=== PATIENT | female | born 1975 | race Caucasian/White ===

== ENCOUNTER 2020-01-09 09:26 | Day surgery (SDC) | payer BC ==
--- NOTE | 2020-01-01 14:55 | RAD REPORT ---
EXAM DESCRIPTION: RAD - Chest Pa And Lat (2 Views) - 01/01/2020 2:50 pm CLINICAL HISTORY: pre op Chest pain. COMPARISON: No comparisons FINDINGS: The lungs are clear. The heart is upper limit of normal in size. No displaced fractures. IMPRESSION: No acute or concerning finding suspected.
[2020-01-01 15:33] LABS: Protime INR 0.92
[2020-01-01 15:35] LABS: Absolute Lymphocytes (CBC) 2.2 K/uL (0.7-4.9); Hematocrit 28.3 % (36.0-45.0); Lymphocytes % 36.5 % (15.3-44.8); MPV 9.4 fL (7.6-11.3); RBC Red Blood Cell Count 4.48 M/uL (3.86-4.86)
[2020-01-01 15:43] LABS: BUN Blood Urea Nitrogen 10 mg/dL (7-18); Bicarbonate 26 mmol/L (21-32); Glucose Level 95 mg/dL (74-106); Potassium 3.9 mmol/L (3.5-5.1); Sodium Level 138 mmol/L (136-145)
[2020-01-01 15:45] LABS: Urine Appearance CLEAR; Urine Bilirubin NEGATIVE (NEG); Urine Blood 1+ (NEG); Urine Color YELLOW; Urine Glucose NEGATIVE (NEG); Urine Protein NEGATIVE (NEG); Urine Specific Gravity <=1.005 (1.005-1.030); Urine Urobilinogen 0.2 mg/dL (0.2-1.0); Urine pH 6.5 (5.0-7.0)
[2020-01-01 15:50] LABS: Urine Microscopic Reflex ORDER UMIC
[2020-01-01 16:03] LABS: Urine Bacteria 20-50 /HPF (<20)
[2020-01-01 16:04] LABS: Urine Culture Reflex Order REFLEXED
[2020-01-01 16:59] LABS: Anisocytosis 2+; Blood Morphology Comment NOTED (NOT SEEN); Platelet Estimate ADEQ; Poikilocytosis 2+; White Blood Cell Scan OK (OK)
[2020-01-09] MEDS ORDERED: Ringers Lactate 1,000 ML IV ONE ×4 (10:27→16:08)
--- OUTSIDE RECORDS SUMMARY | 2020-01-09 10:35 | XMS REPORT | Continuity of Care Document ---
:[address] [facility] t Address [address] [place] [address] Care Team Providers Name Role Phone Malinda PEREZ Primary Care Physician Vi PEREZ, S Attending Clinician Problems This patient has no known problems. Allergies, Adverse Reactions, Alerts This patient has no known allergies or adverse reactions. Family History Family Member Diagnosis Comments Start Date Stop Date Source Natural father Heart disease [facility] Natural father Stroke [facility] Natural mother Diabetes [facility] Natural mother Heart disease [facility] Social History Social Habit Start Date Stop Date Quantity Comments Source History of tobacco Cigarette Smoker [facility] Sex Assigned At [facility] Cigarettes smoked 2017-04-20 2017-04-20 [place] current (pack per 00:00:00 00:00:00 Method) - Reported Tobacco use and 2017-04-20 2017-04-20 Never used [facility] exposure 00:00:00 00:00:00 [facility] Alcohol intake 2017-04-20 2017-04-20 Current drinker [place] on 00:00:00 00:00:00 of alcohol [facility] (finding) Smoking Status Start Date Stop Date Source Current every day smoker 2017-04-20 00:00:00 Roel Ojeda Medications Ordered Filled Start Stop Current Ordering Indication Dosage Frequency Signature Comments Components Source Medication Medication Date Date Medication? Clinician (SIG) Name Name Metoprolol Metoprolol Yes Chelsea [address] [facility] Tartrate Tartrate 918 [facility] Metoprolol Metoprolol Yes Chelsea [address] [facility] Succinate Succinate 8- [place] [facility] - ER ER 00:00: [facility] 00 [facility] Chantix Chantix 2019- Yes Chelsea [address] Continuing Continuing 801-19 [place] [facility] - Month Odin Month Odin 00:00: 00:00 Me moria 00 :00 l [facility] Sumatriptan Sumatriptan 2018-03 Yes Chelsea [address] [facility] Succinate Succinate 0-03 [place] [facility] needed [facility] - 00:[facility]: [facility] 00 [facility] Procedures This patient has no known procedures. Plan of Care Planned Activity Planned Date Details Comments Source Future Scheduled 2019-10-21 INFLUENZA VACCINE [place] [facility] Test 00:00:00 [code = INFLUENZA VACCINE] Future Scheduled 1998 Screening for [facility] Test 00:00:00 malignant neoplasm of cervix (procedure) [code = 160649425] Encounters Start End Encounter Admission Attending Care Care Encounter Source Date/Time Date/Time Type Type Clinicians Facility Department ID 2020-01-02 2020-01-[address] [id number] 2019-12-27 2019-12-28 Emergency [facility], [facility] [id number] 22:00:00 02:01:00 Vinita Ruiz [id number] [place] [id number] [place] [id number] 2019-12-08 2019-12-08 [facility] [id number] [address] 10:00:00 10:00:00 [facility] 2019-11-21 2019-11-21 [facility] [id number] [address] 16:23:00 16:23:00 [facility] [employer] s - Drive [facility] Medicine Outpati ent Clinics 2019 2019 [facility] [id number] 16[facility]00:00 16:00:[facility] Road [facility] Medicine Outpati ent Clinics 2019-10-25 2019-10-25 [facility] [id number] 11:40:00 11:40:[address] [facility] Road [facility] Medicine Outpati ent Clinics 2019-10-11 2019-10-11 [facility] [id number] 08:40:00 08:40:[address] [facility] Road [facility] Medicine Outpati ent Clinics 2019-01-12 2019-01-12 [facility] [id number] 08:40:00 08:40:00 [facility] Medicine Outpati ent Clinics 2019-01-06 2019-01-06 [facility] [id number] 16:07:00 16:07:00 [facility] [employer] [facility] Medicine Outpati ent Clinics 2018-12-22 2018-12-22 [facility] [id number] 15[facility]20:00 15:20:00 [facility] Medicine Outpati ent Clinics Results This patient has no known results.
--- OUTSIDE RECORDS SUMMARY | 2020-01-09 10:35 | XMS REPORT ---
:1975 Author Organization [employer] Care Team Providers Name Role Phone Chelsea Siegel Provider Role Unavailable Allergies, Adverse Reactions, Alerts Substance Reaction Event Type N.K.D.A. Info Not Available Non Drug Allergy Problems Problem Type Condition Code Onset Dates Condition Statu s Problem Dysuria R30.0 Active Problem Fatigue, unspecified type R53.83 Ac tive Problem Migraine without status G43.909 Acti ve migrainosus, not intractable, unspecified migraine type Assessment Smoker F17.200 Active Assessment Spasm of back muscles M62.830 Active Assessment Essential hypertension I10 Activ e Assessment Other constipation K59.09 Active Problem Spasm of back muscles M62.830 Active Problem Essential hypertension I10 Activ e Problem Smoker F17.200 Active Problem Encounter for general adult medical Z00.01 Active examination with abnormal findings Problem Screening for lipid disorders Z13.220 Active Problem Bruit of left carotid artery R09.89 Active Problem Depression with anxiety F41.8 Acti ve Medications Medication Code Code Instructions Start End Status Dosage System Date Date Lisinopril ND 93503424341 20 MG Orally Active take 1 Once a day tablet by mouth in the morning Chantix Continuing ND 95894443268 1 MG Orally BID Oct 24, Feb A ctive 1 tablet Month Odin 2019 Sumatriptan ND 28126350677 25 MG Orally Dec 22, Active 1 t ablet Succinate Twice a day 2018 as needed Cyclobenzaprine ND 56212437304 5 MG Orally October 10Oct Active 1 tablet HCl Once a day 2019, at bedtime 2019 as needed Metoprolol ND 91299933642 25 MG Orally Oct 24, Active 1 ta blet Succinate ER Once a day 2019 Chantix Starting ND 42550716257 0.5 MG X 11 & 1 Oct 24, Sept Act lynsey as Month Odin MG X 42 Orally 2019 04, directe d as directed 2019 Results No Known Results Summary Purpose [employer] Submission
--- OUTSIDE RECORDS SUMMARY | 2020-01-09 10:35 | XMS REPORT ---
:1975 Author Organization [employer] Care Team Providers Name Role Phone Chelsea Siegel Provider Role Unavailable Allergies, Adverse Reactions, Alerts Substance Reaction Event Type N.K.D.A. Info Not Available Non Drug Allergy Problems Problem Type Condition Code Onset Dates Condition Statu s Problem Fatigue, unspecified type R53.83 Ac tive Problem Migraine without status G43.909 Acti ve migrainosus, not intractable, unspecified migraine type Assessment Spasm of back muscles M62.830 Active Assessment Bruit of left carotid artery R09.89 Active Assessment Migraine without status G43.909 Acti ve migrainosus, not intractable, unspecified migraine type Assessment Essential hypertension I10 Activ e Problem Essential hypertension I10 Activ e Problem Bruit of left carotid artery R09.89 Active Problem Spasm of back muscles M62.830 Active Problem Encounter for general adult medical Z00.01 Active examination with abnormal findings Problem Screening for lipid disorders Z13.220 Active Problem Depression with anxiety F41.8 Acti ve Problem Dysuria R30.0 Active Medications Medication Code Code Instructions Start End Status Dosage System Date Date Lisinopril [facility] 00036316206 20 MG Orally Active take 1 Once a day tablet by mouth in the morning Cyclobenzaprine ND 98046871820 5 MG Orally October 10, Nov 09, Active 1 tablet HCl Once a day 2019 2019 at bedtime as needed Sumatriptan [facility] 89793785978 25 MG Orally Dec 22, Active 1 t ablet Succinate Twice a day 2019 as needed Results No Known Results Summary Purpose [employer]Works Submission
--- OUTSIDE RECORDS SUMMARY | 2020-01-09 10:35 | XMS REPORT | Clinical Summary ---
:1975 Author Organization [facility] Address [address] [place] [id number] Care Team Providers Name Role Phone Adeline Petty MD Primary Care Provider Allergies No Known Active Allergies Medications No known medications Active Problems Not on file Medical History Medical History Date Comments Mitral valve prolapse Family History Medical History Relation Name Comments Heart disease Father Stroke Father Diabetes Mother Heart disease Mother Relation Name Status Comments Father Alive Mother Alive Other siblings Alive Social History Tobacco Use Types Packs/Day Years Used Date Current Every Day Smoker Cigarettes 1 Smokeless Tobacco: Never Used Alcohol Use Drinks/Week oz/Week Comments Yes Sex Assigned at Date Recorded Not on file Last Filed Vital Signs Not on file Plan of Treatment Health Maintenance Due Date Last Done Comments CERVICAL CANCER SCREENING 1998 INFLUENZA VACCINE 10/21/2019 Results Not on fileafter 01/08/2019 Advance Directives For more information, please contact: [phone] Type Date Recorded 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
--- OUTSIDE RECORDS SUMMARY | 2020-01-09 10:36 | XMS REPORT | Summary of Care ---
:1975 Author Organization [facility] Address [address] [place] [id number] Care Team Providers Name Role Phone Chelsea Siegel Primary Care Provider Reason for Referral MRI/CAT Scan (STAT) Status Reason Specialty Diagnoses / Referred By Referred To Procedures Contact Contact New Request Diagnostic Diagnoses Headache disorder Yarima, Pritikili Radiology Procedures CT ANGIOGRAM NECK MD Staci [address] [place] [address] MRI/CAT Scan (STAT) Status Reason Specialty Diagnoses / Referred By Referred To Procedures Contact Contact New Request Diagnostic Diagnoses Headache disorder Cristalrima, Wakili Radiology Procedures CT ANGIOGRAM HEAD MD St[facility] [address] [place] [address] MRI/CAT Scan (STAT) Status Reason Specialty Diagnoses / Referred By Referred To Procedures Contact Contact New Request Diagnostic Diagnoses Headache disorder Cristalrima, Pritikili Radiology Procedures CT HEAD WO CONTRAST MD Staci [address] [place] [address] Reason for Visit Reason Comments Headache Neck Pain Auth/Cert Status Reason Specialty Diagnoses / Referred By Referred To Procedures Contact Contact Emergency Medicine [facility] ergency Dept [address] [place] [address] Fax: Encounter Details Date Type Department Care Team Description 12/27/2019 - Emergency ADC-Emergency Vinita Lebron, Headache disorder (Primary Dx); 12/28/2019 Department Essential hypertension [id number] [place] [address] [place], [place] [phone] Allergies No Known Allergiesdocumented as of this encounter (statuses as of 12/28/2019) Medications Medication Sig Dispensed Refills Start Date End Date Status traMADOL 50 mg tablet Take 1 tablet by 20 tablet 0 06/30/2017 Active mouth every 6 (six) hours as needed (pain). ofloxacin 0.3 % Place 2 Drops in 5 mL 0 06/30/2017 Active ophthalmic solution left eye 4 (four) times daily. documented as of this encounter (statuses as of 12/28/2019) Active Problems No known active problemsdocumented as of this encounter (statuses as of 12/28/2019) Social History Tobacco Use Types Packs/Day Years Used Date Never Assessed Sex Assigned at Date Recorded Not on file COVID-19 Exposure Response Date Recorded In the last month, have you been in contact with No / Unsure 12/27/2019 9:52 PM CDT someone who was confirmed or suspected to have Coronavirus / COVID-19? documented as of this encounter Last Filed Vital Signs Vital Sign Reading Time Taken Comments Blood Pressure 136/98 12/28/2019 2:00 AM CDT Pulse 87 12/28/2019 2:00 AM CDT Temperature 36.8 C (98.2 F) 12/27/2019 9:55 PM CDT Respiratory Rate 14 12/28/2019 2:00 AM CDT Oxygen Saturation 98% 12/28/2019 2:00 AM CDT Inhaled Oxygen Concentration - - Weight 111.1 kg (245 lb) 12/27/2019 9:55 PM CDT Height 175.3 cm (5' 9") 12/27/2019 9:55 PM CDT Body Mass Index 36.18 12/27/2019 9:55 PM CDT documented in this encounter Discharge Instructions Vinita Cristina MD - 12/28/2019 DIAGNOSIS Diagnoses that have been ruled out: None Diagnoses that are still under consideration: None Final diagnoses: Headache disorder Essential hypertension NO LIFE-THREATENING FINDINGS ON TODAY'S EXAM. PROCEDURES IN THE ER TODAY: Orders Placed This Encounter Procedures CT HEAD WO CONTRAST CT ANGIOGRAM HEAD CT ANGIOGRAM NECK CBC WITH DIFF BASIC METABOLIC PANEL (NA, K, CL, CO2, GLUCOSE, BUN, CREATININE, CA) MEDICATIONS ADMINISTERED IN THE ER TODAY AND DISCHARGE MEDICATIONS: Orders Placed This Encounter Medications metoclopramide HCl (REGLAN) injection 10 mg diphenhydrAMINE (BENADRYL) injection 25 mg FENTanyl PF (SUBLIMAZE (PF)) injection 50 mcg iohexol (OMNIPAQUE 350 BULK-100 mL) injection 100 mL FOLLOW-UP RECOMMENDATIONS: RECOMMEND FOLLOW-UP WITH YOUR PRIMARY CARE PROVIDER OR WITH DR TORRES, NEUROLOGY SPECIALIST IN 2-5DAYS, ESPECIALLY IF NO IMPROVEMENT IN SYMPTOMS. MAY FOLLOW-UP WITH A PROVIDER OF YOUR CHOICE, SUCH : 1. A PHYSICIAN OF YOUR CHOICE 2. [facility], . LOCATIONS IN [facility] 3. [facility], [address] [place] [address]; [phone] OR, IF YOU WISH TO FOLLOW-UP WITHIN THE [facility], MAY TRY THESE OPTIONS (CLINIC APPOINTMENTS AVAILABLE ON [id number] BASIS): 1. SCHEDULE AN APPOINTMENT ONLINE AT [email or web address] 2. OR CALL THE [facility] AT OR 3. OR CALL YOUR [facility] PHYSICIAN'S OFFICE DIRECTLY IF YOU ARE ALREADY AN ESTABLISHED [facility] PATIENT. RETURN TO ER FOR WORSENING OF SYMPTOMS AttachmentsThe following attachments cannot be sent through Care Everywhere.High Blood Pressure, Controlling (Samoan)Headache, Unspecified (Samoan)documented in this encounter ED Notes Isa Soto RN - 12/27/2019 9:52 PM CDTPatient with headache starting today took Sumatriptan and metropolol around noon with no improvement. Then started having neck pain/"fullness". Patient also complains of nausea. Pain 7/10 at this time pressure/throbbing. PMX:Mitral valve prolapse & HTN SHX: Hysterectomy Vinita Barrientos MD - 12/27/2019 9:46 PM CDT [facility] Emergency Department Note Patient Name: Anay Luo Date of : 1975 44 year old female Treatment Room: [facility] Primary Care Physician: Chelsea Siegel Patient Escorted by: Family [5] Mode of Arrival: Personal means [1] EMS Treatment Prior to ED Arrival: PRN PHYSICAL THERAPIST treatment: None Travel and Exposure Screening: Symptoms Does patient have any of these symptoms?: (not recorded) Exposure Screening Has patient had contact with someone with a communicable disease in the last month?: (not recorded) Diseases exposed to:: (not recorded) Is Patient ?: (not recorded) Exposure Date: (not recorded) Chief Complaint: Chief Complaint Patient presents with Headache Neck Pain History of Present Illness: Anay Luo is a 44 year old female who presented to the ED for evaluation of a BALDWIN. BALDWIN began about 4:00PM tonight and began gradually to neck/back of head and then spread to become global. Pt has ahx of migraine and current BALDWIN is different from her usual migraine. BALDWIN is associated with "tension" to right neck and jaw which is usual with her migraine headache. + nausea. No vomiting. No fever reported. Denies any URI symptoms. No rash reported. No trauma or injury or falls. Denies any diplopia orvisual changes. No focal weakness/numness reported. Pt also noted that her blood pressure was "high"at home.Deneis any chest pain. No palpitations. No SOB/Dyspnea. Pt took her antihypertensive Rx about mid-day and Sumatriptan about 6:00 PM Past Medical History/Immunizations: Migraine HTN Uncontrolled MVP Heart Murmur Tetanus received in last 5 years: Unknown Allergies: No Known Allergies Past Social History: Substance & Sexual Activity No substance use or sexual activity history on file. Past Surgical History: Bladder Sling procedure BTL Tonsillectomy Review of Systems: Review of Systems Constitutional: Negative. Negative for appetite change, chills, diaphoresis, fatigue, fever and unexpected weight change. HENT: Negative. Eyes: Negative. Respiratory: Negative. Breasts: Negative. Cardiovascular: Negative. Gastrointestinal: Negative. Genitourinary: Negative. Musculoskeletal: Positive for neck stiffness. Negative for neck pain. Skin: Negative. Neurological: Positive for headaches. Psychiatric/Behavioral: Negative. Endocrine: Endocrine negative Physical Exam: ED Triage Vitals [12/27/19 2155] Weight 111.1 kg (245 lb) Actual or estimated Estimated by patient/family report Height 1.753 m (5' 9") BP (!) 171/104 Pulse 77 Resp 17 Temp 36.8 C (98.2 F) Temp source Oral SpO2 100 % Measured on Room air Physical Exam Vitals signs and nursing note reviewed. Constitutional: General: She is not in acute distress. Appearance: Normal appearance. She is well-developed. She is obese. She is not ill-appearing, toxic-appearing or diaphoretic. HENT: Head: Normocephalic and atraumatic. Nose: Nose normal. No congestion or rhinorrhea. Mouth/Throat: Mouth: Mucous membranes are moist. Pharynx: Oropharynx is clear. No oropharyngeal exudate or posterior oropharyngeal erythema. Eyes: General: No scleral icterus. Right eye: No discharge. Left eye: No discharge. Extraocular Movements: Extraocular movements intact. Conjunctiva/sclera: Conjunctivae normal. Pupils: Pupils are equal, round, and reactive to light. Neck: Musculoskeletal: Normal range of motion and neck supple. Thyroid: No thyromegaly. Cardiovascular: Rate and Rhythm: Normal rate and regular rhythm. Pulses: Normal pulses. Heart sounds: Normal heart sounds. No murmur. Pulmonary: Effort: Pulmonary effort is normal. No respiratory distress. Breath sounds: Normal breath sounds. No stridor. No wheezing, rhonchi or rales. Chest: Chest wall: No tenderness. Abdominal: General: Bowel sounds are normal. There is no distension. Palpations: Abdomen is soft. There is no mass. Tenderness: There is no abdominal tenderness. There is no left CVA tenderness, guarding or rebound. Hernia: No hernia is present. Musculoskeletal: Normal range of motion. General: No tenderness, deformity or signs of injury. Right lower leg: No edema. Left lower leg: No edema. Lymphadenopathy: Cervical: No cervical adenopathy. Skin: General: Skin is warm and dry. Capillary Refill: Capillary refill takes less than 2 seconds. Coloration: Skin is not jaundiced or pale. Findings: No bruising, erythema, lesion or rash. Neurological: General: No focal deficit present. Mental Status: She is alert and oriented to person, place, and time. Cranial Nerves: No cranial nerve deficit. Sensory: No sensory deficit. Motor: No weakness or abnormal muscle tone. Coordination: Coordination normal. Gait: Gait normal. Deep Tendon Reflexes: Reflexes normal. Psychiatric: Mood and Affect: Mood normal. Behavior: Behavior normal. Thought Content: Thought content normal. Judgment: Judgment normal. Radiology: Hospital Encounter on 12/27/[address] ANGIOGRAM NECK, CT ANGIOGRAM HEAD HISTORY: Arterial stricture / occlusion, head neck Headache, sudden, carotid/vertebral dissection suspected TECHNIQUE: CTA of the head with coronal, sagittal reformats, and MIPS reconstruction was performed. COMPARISON: None. FINDINGS: CTA NECK: Aortic arch and arch vessel origins: Three-vessel anatomy. The ostia of the major vessels are free of stenosis. Innominate and subclavian arteries: Unremarkable. Common carotids: Unremarkable. Cervical ICA/Carotid bulbs: Unremarkable. Vertebral arteries: The vertebral arteries origin from the subclavian arteries. There is a short segment of nonvisualization of the left V1 segment (9:136), likely due to streak artifact from the injected contrast. Cervical soft tissues: Periapical lucency along the right maxillary second premolar with cortical breakthrough to the right maxillary sinus and mucoperiosteal thickening of the right maxillary sinus. CTA HEAD: The PICA origin is visualized bilaterally. The basilar artery is normal in caliber. The superior cerebellar arteries are unremarkable. The posterior cerebral arteries are unremarkable. A medium-sized left P-comm is seen. The distal cervical, petrous, cavernous and supraclinoid internal carotid arteries are unremarkable. The anterior and middle cerebral arteries are unremarkable. An anterior communicating artery is visualized. Impression No aneurysm, vascular occlusion or high-grade stenosis. Preliminary Report Dictated by Resident: Thai Villafana CT HEAD WO CONTRAST Narrative CT HEAD WO CONTRAST HISTORY: Female 44 years Headache, acute, normal neuro exam COMPARISON: None TECHNIQUE: Routine CT head without contrast FINDINGS: The ventricles and cerebral sulci are normal in caliber and configuration. No hydrocephalus, midline shift or pathological extra-axial fluid collection is present. The basal cisterns are unremarkable. No acute intracranial hemorrhage or mass effect is present. The payne-white matter differentiation is preserved. No parenchymal attenuation abnormality is present. The calvarium and skull base are unremarkable. The mastoid air cells are clear. Mild periosteal thickening is seen in the right maxillary sinus. Impression No acute intracranial abnormality CT ANGIOGRAM HEAD Narrative CT ANGIOGRAM NECK, CT ANGIOGRAM HEAD HISTORY: Arterial stricture / occlusion, head neck Headache, sudden, carotid/vertebral dissection suspected TECHNIQUE: CTA of the head with coronal, sagittal reformats, and MIPS reconstruction was performed. COMPARISON: None. FINDINGS: CTA NECK: Aortic arch and arch vessel origins: Three-vessel anatomy. The ostia of the major vessels are free of stenosis. Innominate and subclavian arteries: Unremarkable. Common carotids: Unremarkable. Cervical ICA/Carotid bulbs: Unremarkable. Vertebral arteries: The vertebral arteries origin from the subclavian arteries. There is a short segment of nonvisualization of the left V1 segment (9:136), likely due to streak artifact from the injected contrast. Cervical soft tissues: Periapical lucency along the right maxillary second premolar with cortical breakthrough to the right maxillary sinus and mucoperiosteal thickening of the right maxillary sinus. CTA HEAD: The PICA origin is visualized bilaterally. The basilar artery is normal in caliber. The superior cerebellar arteries are unremarkable. The posterior cerebral arteries are unremarkable. A medium-sized left P-comm is seen. The distal cervical, petrous, cavernous and supraclinoid internal carotid arteries are unremarkable. The anterior and middle cerebral arteries are unremarkable. An anterior communicating artery is visualized. Impression No aneurysm, vascular occlusion or high-grade stenosis. Preliminary Report Dictated by Resident: Thai Villafana Lab Results (24h): Recent Results (from the past 24 hour(s)) CBC WITH DIFF Collection Time: 12/27/19 11:06 PM Result Value Ref Range WBC 8.57 4.30 - 11.10 10*3/L RBC 4.64 3.93 - 5.25 10*6/L HGB 9.1 (L) 11.6 - 15.0 g/dL HCT 31.0 (L) 35.7 - 45.2 % MCV 66.8 (L) 80.6 - 95.5 fL MCH 19.6 (L) 25.9 - 32.8 pg MCHC 29.4 (L) 31.6 - 35.1 g/dL RDW-SD 43.4 39.0 - 49.9 fL RDW-CV 18.6 (H) 12.0 - 15.5 % PLT 394 (H) 166 - 358 10*3/L MPV 10.3 9.5 - 12.9 fL NRBC/100 WBC 0.0 0.0 - 10.0 /100 WBCs NRBC x10^3 <0.01 10*3/L GRAN MAT (NEUT) % 66.9 % IMM GRAN % 0.50 % LYMPH % 22.6 % MONO % 8.2 % EOS % 1.1 % BASO % 0.7 % GRAN MAT x10^3(ANC) 5.74 1.88 - 7.09 10*3/uL IMM GRAN x10^3 0.04 0.00 - 0.06 10*3/uL LYMPH x10^3 1.94 1.32 - 3.29 10*3/uL MONO x10^3 0.70 0.33 - 0.92 10*3/uL EOS x10^3 0.09 0.03 - 0.39 10*3/uL BASO x10^3 0.06 0.01 - 0.07 10*3/uL BASIC METABOLIC PANEL (NA, K, CL, CO2, GLUCOSE, BUN, CREATININE, CA) Collection Time: 12/27/19 11:07 PM Result Value Ref Range NA 136 135 - 145 mmol/L K 3.8 3.5 - 5.0 mmol/L CL 100 98 - 108 mmol/L CO2 TOTAL 27 23 - 31 mmol/L AGAP 9 2 - 16 BUN 11 7 - 23 mg/dL GLUCOSE 125 (H) 70 - 110 mg/dL CREATININE 0.87 0.50 - 1.04 mg/dL CALCIUM 9.5 8.6 - 10.6 mg/dL eGFR Calculation (Non-) 71.4 mL/min/1.73m2 eGFR Calculation () 86.5 mL/min/1.73m2 Orders and Treatments: Orders Placed This Encounter Procedures CT HEAD WO CONTRAST CT ANGIOGRAM HEAD CT ANGIOGRAM NECK CBC WITH DIFF BASIC METABOLIC PANEL (NA, K, CL, CO2, GLUCOSE, BUN, CREATININE, CA) Orders Placed This Encounter Medications metoclopramide HCl (REGLAN) injection 10 mg diphenhydrAMINE (BENADRYL) injection 25 mg FENTanyl PF (SUBLIMAZE (PF)) injection 50 mcg iohexol (OMNIPAQUE 350 BULK-100 mL) injection 100 mL ED COURSE MDM: Coding Scoring Tools: No data recorded Diagnosis/Impression: ICD-10-CM ICD-9-CM 1. Headache disorder R51.9 784.0 2. Essential hypertension I10 401.9 Disposition/Condition: ED Disposition ED Disposition Condition Comment Disch - Home Stable Discharge Medications: Patient's Medications START taking these medications No medications on file CONTINUE taking these medications which have NOT CHANGED OFLOXACIN 0.3 % OPHTHALMIC SOLUTION Place 2 Drops in left eye 4 (four) times daily. TRAMADOL 50 MG TABLET Take 1 tablet by mouth every 6 (six) hours as needed (pain). START taking Modified Medications as Prescribed No medications on file STOP taking these medications No medications on file Follow-up: Electronically signed by: Vinita Lebron MD 12/27/2019 10:44 PM documented in this encounter Miscellaneous Notes ED Nurse Note - Casi Alamo RN - 12/28/2019 1:59 AM CDTPt given printed and verbal discharge instructions regarding headache and HTN, encouraged hydration. Pt verbalized understanding of instructions, pt awake alert oriented, resp reg unlabored, skin w/d, color appropriate for race, moves all ext well, pt encouraged to follow up with PCP. Advised to seek medical attention for new/prolonged/worsening of symptoms. Symptoms addressed. No adverse reaction to meds given in ER noted upon discharge. PIV d'cd, dressing to site, catheter intact. Pt leaving amb with steady gait, in no apparent distress. D Nurse Note - Casi Alamo RN - 12/28/2019 1:09 AM CDTNurse Report Report received from SANDRA Hill. Chief complaint, assessment findings and orders reviewed. Plan of care discussed with both nurses. Casi Alamo RN documented in this encounter Plan of Treatment Name Type Priority Associated Diagnoses Date/Ti me CT ANGIOGRAM HEAD IMAGING STAT Headache disorder 12/27 1:[address] ANGIOGRAM NECK IMAGING STAT Headache disorder 12/27 1:06 AM CDT Health Maintenance Due Date Last Done Comments Depression Screening 1989 DTaP,Tdap,and Td Vaccines (1 - 1996 Tdap) PAP SMEAR 1998 Breast Cancer Screening 2017 (MAMMOGRAM) INFLUENZA VACCINE (#1) 2019 PNEUMOCOCCAL 0-64 YEARS COMBINED Aged Out No longer eligible based on SERIES patient's age to complete this topic documented as of this encounter Procedures Procedure Name Priority Date/Time Associated Diagnosis Comme nts CT ANGIOGRAM NECK STAT 12/28/2019 1:06 AM CDT Headache dis order Procedure Note - [facility], Radia nt Results Inft User - 12/28/2019 1:[address] ANGIOGRAM NECK, CT ANGIOGRAM HEAD HISTORY: Arterial stricture / occlusion, head neck Headache, sudden, carotid/vertebral dissection suspected TECHNIQUE: CTA of the head w ith coronal, sagittal reformats, and MIPS reconstruction was performed . COMPARISON: None. FINDINGS: CTA NECK: Aortic arch and arch vessel origins: Three-vessel anatomy. The ostia of the major vessels are free of st enosis. Innominate and subclavian ar teries: Unremarkable. Common carotids: Unremarkabl e. Cervical ICA/Carotid bulbs: Unremarkable. Vertebral arteries: The vert ebral arteries origin from the subclavian arteries. There is a short s egment of nonvisualization of the left V1 segment (9:136), likely due to streak artifact from the injected contrast. Cervical soft tissues: Peria pical lucency along the right maxillary second premolar with cortical break through to the right maxillary sinus and mucoperiosteal thickening of the right maxillary sinus. CTA HEAD: The PICA origin is visualize d bilaterally. The basilar artery is normal in caliber. The superior cerebe llar arteries are unremarkable. The posterior cerebral arteries are unrema rkable. A medium-sized left P-comm is seen. The distal cervical, petrous , cavernous and supraclinoid internal carotid arteries are unremarkable. T he anterior and middle cerebral arteries are unremarkable. An anterior co mmunicating artery is visualized. IMPRESSION No aneurysm, vascular occlus ion or high-grade stenosis. Preliminary Report Dictated by Resident: Thai Villafana CT ANGIOGRAM HEAD STAT 12/28/2019 1:06 AM CDT Headache dis order Procedure Note - [facility], Radia nt Results Inft User - 12/28/2019 1:[address] ANGIOGRAM NECK, CT ANGIOGRAM HEAD HISTORY: Arterial stricture / occlusion, head neck Headache, sudden, carotid/vertebral dissection suspected TECHNIQUE: CTA of the head w ith coronal, sagittal reformats, and MIPS reconstruction was performed . COMPARISON: None. FINDINGS: CTA NECK: Aortic arch and arch vessel origins: Three-vessel anatomy. The ostia of the major vessels are free of st enosis. Innominate and subclavian ar teries: Unremarkable. Common carotids: Unremarkabl e. Cervical ICA/Carotid bulbs: Unremarkable. Vertebral arteries: The vert ebral arteries origin from the subclavian arteries. There is a short s egment of nonvisualization of the left V1 segment (9:136), likely due to streak artifact from the injected contrast. Cervical soft tissues: Peria pical lucency along the right maxillary second premolar with cortical break through to the right maxillary sinus and mucoperiosteal thickening of the right maxillary sinus. CTA HEAD: The PICA origin is visualize d bilaterally. The basilar artery is normal in caliber. The superior cerebe llar arteries are unremarkable. The posterior cerebral arteries are unrema rkable. A medium-sized left P-comm is seen. The distal cervical, petrous , cavernous and supraclinoid internal carotid arteries are unremarkable. T he anterior and middle cerebral arteries are unremarkable. An anterior co mmunicating artery is visualized. IMPRESSION No aneurysm, vascular occlus ion or high-grade stenosis. Preliminary Report Dictated by Resident: Thai Villafana CT HEAD WO CONTRAST STAT 12/27/2019 11:26 PM Headache disor bailey Results for this CDT procedure are i n the results section. BASIC METABOLIC STAT 12/27/2019 11:07 PM Headache disorder Results for this PANEL (NA, K, CL, CDT procedure are in CO2, GLUCOSE, BUN, the resul ts CREATININE, CA) section. CBC WITH DIFF STAT 12/27/2019 11:06 PM Headache disorder Re sults for this CDT procedure are i n the results section. EKG-12 LEAD Routine 12/27/2019 10:55 PM CDT NOTICE OF PRIVACY Routine 12/27/2019 9:45 PM PRACTICES CDT CONSENT/REFUSAL FOR Routine 12/27/2019 9:45 PM DIAGNOSIS AND CDT TREATMENT documented in this encounter Results CT HEAD WO CONTRAST (12/27/2019 11:26 PM CDT) Specimen Impressions Performed At PACS/VR/DOSE No acute intracranial abnormality Narrative Performed At CT HEAD WO CONTRAST PACS/VR/DOSE HISTORY: Female 44 years Headache, acute , normal neuro exam COMPARISON: None TECHNIQUE: Routine CT head without contr ast FINDINGS: The ventricles and cerebral sulci are normal in calibe r and configuration. No hydrocephalus, midline shift or patho logical extra-axial fluid collection is present. The basal cistern s are unremarkable. No acute intracranial hemorrhage or mass effect is pre sent. The payne-white matter differentiation is preserved. No parenchymal at tenuation abnormality is present. The calvarium and skull base are unremar kable. The mastoid air cells are clear. Mild periosteal thickening is see n in the right maxillary sinus. Procedure Note [facility], Radiant Results Inft User - 2019 11:[address] HEAD WO CONTRAST HISTORY: Female 44 years Headache, acute , normal neuro exam COMPARISON: None TECHNIQUE: Routine CT head without contr ast FINDINGS: The ventricles and cerebral sulci are no rmal in caliber and configuration. No hydrocephalus, midline shift or patho logical extra-axial fluid collection is present. The basal cistern s are unremarkable. No acute intracranial hemorrhage or mass effect is present. The payne-white matter differentiation is preserved. No parenchymal attenuation abnormality is present. The calvarium and skull base are unremar kable. The mastoid air cells are clear. Mild periosteal thickening is see n in the right maxillary sinus. IMPRESSION No acute intracranial abnormality Performing Organization Address City/State/Zipcode Phone Number PACS/VR/DOSE BASIC METABOLIC PANEL (NA, K, CL, CO2, GLUCOSE, BUN, CREATININE, CA) (12/27/2019 11:07 PM CDT) Pathologist Sig nature NA 136 135 - 145 [facility] mmol/L [facility] K 3.8 3.5 - 5.0 [facility] mmol/L [facility] CL 100 98 - 108 mmol/L [facility] CO2 TOTAL 27 23 - 31 mmol/L [facility] AGAP 9 2 - 16 [facility] BUN 11 7 - 23 mg/dL [facility] GLUCOSE 125 (H) 70 - 110 mg/dL [facility] LABORATORY CREATININE 0.87 0.50 - 1.04 [facility] mg/dL [facility] LABORATORY CALCIUM 9.5 8.6 - 10.6 [facility] mg/dL [facility] LABORATORY eGFR Calculation 71.4 mL/min/1.73m2 [facility] (Non-Formerly named [facility] LABORATORY Niuean) eGFR Calculation 86.5 mL/min/1.73m2 [facility] () [facility] LABORATORY Specimen Blood - VENOUS Narrative Performed At Association of Glomerular Filtration Rate (GFR) [facility] LABORATORY and Staging of Kidney Disease* + + +- + | GFR (mL/min/1.73 m2) | With Kidney Damage | Without Kidney Damage + + +- + | >90 | Stage one | Normal + + +- + | 60-89 | Stage two | Decreased GFR + + +- + | 30-59 | Stage three | Stage three + + +- + | 15-29 | Stage four | Stage four + + +- + | <15 (or dialysis) | Stage five | Stage five + + +- + *Each stage assumes the associated GFR level has been in effect for at least three months. Stages 1 to 5, with or without kidney disease, indicate chronic kidney disease. Notes: Determination of stages one and two (with eGFR >59mL/min/1.73 m2) requires estimation of kidney damage for at least three months as defined by structural or functional abnormalities of the kidney, manifested by either: Pathological abnormalities or Markers of kidney damage (including abnormalities in the composition of the blood or urine or abnormalities in imaging tests). Performing Organization Address City/State/Zipcode Phone Number [facility] CLIA: [id number] [place], [place] [id number] LABORATORY [address] CBC WITH DIFF (12/27/2019 11:06 PM CDT) [facility] WBC 8.57 4.30 - 11.10 [facility] 10*3/L HOSPITAL LABORATORY RBC 4.64 3.93 - 5.25 [facility] 10*6/L [facility] LABORATORY HGB 9.1 (L) 11.6 - 15.0 [facility] g/dL HOSPITAL LABORATORY HCT 31.0 (L) 35.7 - 45.2 % [facility] LABORATORY MCV 66.8 (L) 80.6 - 95.5 fL [facility] LABORATORY MCH 19.6 (L) 25.9 - 32.8 pg [facility] LABORATORY MCHC 29.4 (L) 31.6 - 35.1 [facility] g/dL HOSPITAL LABORATORY RDW-SD 43.4 39.0 - 49.9 fL [facility] LABORATORY RDW-CV 18.6 (H) 12.0 - 15.5 % [facility] LABORATORY PLT 394 (H) 166 - 358 [facility] 10*3/L HOSPITAL LABORATORY MPV 10.3 9.5 - 12.9 fL [facility] LABORATORY NRBC/100 WBC 0.0 0.0 - 10.0 /100 [facility] WBCs [facility] LABORATORY NRBC x10^3 <0.01 10*3/L [facility] LABORATORY GRAN MAT (NEUT) % 66.9 % [facility] LABORATORY IMM GRAN % 0.50 % [facility] LABORATORY LYMPH % 22.6 % [facility] LABOR[facility] MONO % 8.2 % [facility] LABORAT[facility] EOS % 1.1 % [facility] LABORATORY BASO % 0.7 % [facility] LABORATORY GRAN MAT x10^3(ANC) 5.74 1.88 - 7.09 [facility] 10*3/uL HOSPITAL LABORATORY IMM GRAN x10^3 0.04 0.00 - 0.06 [facility] 10*3/uL HOSPITAL LABORATORY LYMPH x10^3 1.94 1.32 - 3.29 [facility] 10*3/uL HOSPITAL LABORATORY MONO x10^3 0.70 0.33 - 0.92 [facility] 10*3/uL HOSPITAL LABORATORY EOS x10^3 0.09 0.03 - 0.39 [facility] 10*3/uL HOSPITAL LABORATORY BASO x10^3 0.06 0.01 - 0.07 [facility] 10*3/uL HOSPITAL LABORATORY Specimen Blood - VENOUS Performing Organization Address City/State/Zipcode Phone Number [facility] CLIA: [id number] [place] [address] documented in this encounter Visit Diagnoses Diagnosis Headache disorder - Primary Headache Essential hypertension Unspecified essential hypertension documented in this encounter Administered Medications Medication Order MAR Action Action Date Dose Rate Site diphenhydrAMINE (BENADRYL) Given 12/27/2019 11:03 PM CDT 25 mg injection 25 mg 25 mg, Slow IV Push, ONCE, 1 dose, Shayna 12/28/19 at 0000, STAT FENTanyl PF (SUBLIMAZE (PF)) injection 50 Given 12/27/2019 11:01 PM CDT 50 mcg mcg 50 mcg, Slow IV Push, ONCE, 1 dose, Shayna 10 at 0000, Routine iohexol (OMNIPAQUE 350 BULK-100 mL) Given 12/28/2019 1:15 AM CD T 100 mL injection 100 mL 100 mL, Intravenous, ONCE, 1 dose, Shayna 12/28/19 at 0115, Routine metoclopramide HCl (REGLAN) injection 10 mg Given 12/27/2019 11:03 PM CDT 10 mg 10 mg, Slow IV Push, ONCE, 1 dose, Shayna 12/28/19 at 0000, [place]EN documented in this encounter Insurance Payer Benefit Plan Subscriber ID Effective Dates Phone Address Type / Group BCBS [facility] [id number] 2017-Seema [phone] [address] [place] [address] [place] [id number] [place] [address] (Work) documented as of this encounter
--- OUTSIDE RECORDS SUMMARY | 2020-01-09 10:36 | XMS REPORT ---
[...] migraine type Assessment Smoker F17.200 Active Assessment Essential hypertension I10 Activ e Problem Spasm of back muscles M62.830 Active Problem Essential hypertension I10 Activ e Problem Smoker F17.200 Active Problem Encounter for general adult medical Z00.01 Active examination with abnormal findings Problem Screening for lipid disorders Z13.220 Active Problem Bruit of left carotid artery R09.89 Active Problem Depression with anxiety F41.8 Acti ve Medications Medication Code Code Instructions Start End Status Dosage System Date Date Chantix [facility] 94159544591 1 MG Orally BID Oct 24, Jan 19, Active 1 ta blet Continuing 2019 2019 Month Odin Metoprolol [facility] 74891581579 50 MG Orally Oct 24, Active 1 ta blet Succinate ER Once a day 2019 Sumatriptan [facility] 46998550256 25 MG Orally Dec 22, Active 1 t ablet Succinate Twice a day 2019 as needed Metoprolol [facility] 13698310315 50 MG Orally Dec 07, Active 1 Tartrate Twice a day 2019 Results No Known Results Summary Purpose eClinicalWorks Submission
--- OUTSIDE RECORDS SUMMARY | 2020-01-09 10:36 | XMS REPORT ---
[...] type Assessment Essential hypertension I10 Activ e Assessment Preoperative clearance Z01.818 Activ e Problem Spasm of back muscles [...] Start End Status Dosage System Date Date Metoprolol [facility] 96179267477 50 MG Orally Oct 24, Active 1 ta blet Succinate ER Once a day [address] [facility] 96230091767 1 MG Orally BID Oct 24, Feb 21, Active 1 ta blet Continuing 2019 2020 Month Odin Sumatriptan [place] 95480621863 25 MG Orally Dec 22, Active 1 t ablet Succinate Twice a day 2019 as needed Results No Known Results Summary Purpose eClinicalWorks Submission
--- OUTSIDE RECORDS SUMMARY | 2020-01-09 10:36 | XMS REPORT ---
:1975 Author Organization eClinicalWorks Care Team Providers Name Role Phone Chelsea Siegel Provider Role Unavailable Allergies No Known Allergies Problems Problem Type Condition Code Onset Dates Condition Statu s Problem Dysuria R30.0 Active Problem Fatigue, unspecified type R53.83 Ac tive Problem Migraine without status G43.909 Acti ve migrainosus, not intractable, unspecified migraine type Assessment Smoker F17.200 Active Problem Spasm of back muscles M62.830 Active Problem Essential hypertension I10 Activ e Problem Smoker F17.200 Active Problem Encounter for general adult medical Z00.01 Active examination with abnormal findings Problem Screening for lipid disorders Z13.220 Active Problem Bruit of left carotid artery R09.89 Active Problem Depression with anxiety F41.8 Acti ve Medications Medication Code Code Instructions Start End Date Status Dosage System Date Chantix [facility] 80936653435 1 MG Orally BID Oct 05, Jan 19, Active 1 ta blet Continuing 2019 2019 Month Odin Results No Known Results Summary Purpose eClinicalWorks Submission
--- OUTSIDE RECORDS SUMMARY | 2020-01-09 10:37 | XMS REPORT ---
:1975 Author Organization [facility] Address [address] [place] [address] Care Team Providers Name Role Phone Dyer Unavailable [phone] PROBLEMS Type Condition ICD9-CM CDE87-DW Onset Condition SNOMED Code Notes Code Code Dates Status Problem Screening for Z13.220 Active 338688897 lipid disorders Problem Encounter for Z00.01 Active 041015325 general adult medical examination with abnormal findings Problem Depression with F41.8 Active 828423483 anxiety Problem Dysuria R30.0 Active 84087588 Problem Allergic J30.9 Active 27290036 rhinitis, unspecified seasonality, unspecified trigger Problem Fatigue, R53.83 Active 69341638 unspecified type Problem Chronic J44.9 Active 15825541 obstructive pulmonary disease, unspecified COPD type Problem Migraine without G43.909 Active 25369001 status migrainosus, not intractable, unspecified migraine type Problem Bruit of left R09.89 Active 196384841 carotid artery Problem Essential I10 Active 99174085 hypertension Problem Spasm of back M62.830 Active 463116481 muscles Problem Smoker F17.200 Active 85610649 ALLERGIES No Known Allergies ENCOUNTERS from 1975 to 2020-01-02 Encounter Location Date Provider Diagnosis [facility] [address] Dec, 2019 Tato Dyer Chronic obstructive [facility] [place] pulmonar y disease, [phone] unspecified [employer] D type J44.9 and Aller gic rhinitis, unspe cified seasonality, unspecified tri gger J30.9 IMMUNIZATIONS No Information SOCIAL HISTORY Tobacco Use: Social History Observation Description Date Details (start date - stop date) Former Smoker Sex Assigned At : Social History Observation Description Sex Assigned At Unknown Alcohol Screen Question Answer Notes Did you have a drink containing alcohol in the past year? No Points 0 Interpretation Negative Tobacco Use/Smoking Question Answer Notes Are you a former smoker REASON FOR REFERRAL No Information VITAL SIGNS No information MEDICATIONS Medication SIG (Take, Route, Start Date End Date Status Frequency, Duration) Metoprolol Succinate ER 50 1 tablet Orally Once a Oct, Active MG day for 30 days Flonase Allergy Relief 50 1 spray in each nostril Active MCG/ACT Nasally Once a day for 30 day(s) Spiriva HandiHaler 18 MCG 1 capsule by inhaling the Dec, Jan, Active contents of the capsule using the HandiHaler device Inhalation Once a day for 30 days Metoprolol Tartrate 50 MG 1 Orally Twice a day for Nov, Active 30 day(s) Chantix Continuing Month 1 tablet Orally BID for Oct, 31 Oc 2019 Active Odin 1 MG 30 days Tiotropium [place] 2 puffs Inhalation Once a Active Monohydrate 2.5 MCG/ACT day for 30 days Sumatriptan Succinate 25 MG 1 tablet as needed Orally Dec, Active Twice a day for 30 days Advair Diskus 500-50 1 puff Inhalation Twice a Active MCG/DOSE day for 30 days PROCEDURES No Information RESULTS No Results REASON FOR VISIT Mylene Siegel Pt; Cough, Phlegm (having COVID test at hospital for surgery, does not need it) MEDICAL (GENERAL) HISTORY Type Description Date Medical History Depression with anxiety Medical History Migraine without status migrainosus, not intractable, unspecified migraine type Surgical History tubal ligation 2005 Surgical History T&A Goals Section No Information Health Concerns No Information MEDICAL EQUIPMENT No Information MENTAL STATUS No Information FUNCTIONAL STATUS No Information ASSESSMENTS Encounter Date Diagnosis Notes Dec, Allergic rhinitis, unspecified seasonali ty, unspecified trigger (ICD-10 - J30.9) Dec, Chronic obstructive pulmonary disease, u nspecified COPD type (ICD-10 - J44.9) PLAN OF TREATMENT Medication Medication Name Sig Start Date Stop Date Spiriva HandiHaler 18 MCG 1 capsule by inhaling the Dec, Jan, contents of the capsule using the HandiHaler device Inhalation Once a day for 30 days Tiotropium [place] Monohydrate 2 puffs Inhalation Once a day 2.5 MCG/ACT for 30 days Advair Diskus 500-50 MCG/DOSE 1 puff Inhalation Twice a day for 30 days Flonase Allergy Relief 50 1 spray in each nostril MCG/ACT Nasally Once a day for 30 day(s) Treatment Notes Assessment Notes Clinical Notes Chronic obstructive pulmonary 44 F presents with productive disease, unspecified COPD type cough with hx of tobacco use. Recent tobacco cessation. Needs to control cough prior to pelvic floor surgery. unclear if copd exacerbation. Currently on [email or web address] add LAMA/LABA/ICS for acute symptom control. Allergic rhinitis, unspecified c/o postnasal drip. likely seasonality, unspecified trigger allergic rhinitis. Next Appt Details prn Reason: Provider Name:Chelsea Siegel, 2020-03-08 10 :40:00 AM, [address], [place], [address], Insurance Providers Payer Name Payer Payer Insured Name Patient Coverage Covera ge End Address Phone Relationship to Start Date Albert e Insured [employer] [phone] Valerio interiano and Juven[place] [id number] [facility] [address] [phone]
[2020-01-09] MEDS ORDERED: ROCURONIUM 50 MG/5 ML VIAL IV ONE (10:38)
[2020-01-09] MEDS ORDERED: LIDOCAINE 2% MPF 5 ML VIAL ONE (10:40)
[2020-01-09] MEDS ORDERED: FENTANYL CITR 250 MCG/5 ML ONE (10:40)
[2020-01-09] MEDS ORDERED: propofoL 200 MG/20 ML VIAL IV ONE (10:40)
[2020-01-09] MEDS ORDERED: MIDAZOLAM HCL 2 MG/2 ML INJ ONE (10:40)
[2020-01-09] MEDS ORDERED: dexAMETHasone 4 MG/ML VIAL ONE (10:41)
[2020-01-09] MEDS ORDERED: ONDANSETRON 4 MG/2 ML VIAL ONE (10:41)
[2020-01-09] MEDS ORDERED: NA CHLORIDE 0.9% 100 ML IV ONE (11:32)
[2020-01-09] MEDS ORDERED: CEFAZOLIN/SWI 1gm 1 GM/10 ML SYR ONE (11:33)
[2020-01-09] MEDS: CEFAZOLIN/SWI 2gm 2 GM/20 ML SYR ONE ×2 (11:48→11:50)
[2020-01-09] MEDS: CEFAZOLIN/SWI 1gm 0 GM/0 ML SYR ONE ×2 (11:48→11:50)
[2020-01-09] MEDS: BUPIVACAINE 0.25% PF 30 ML VIAL ONE ×2 (12:15→12:22)
[2020-01-09] MEDS ORDERED: GLYCOPYRROLATE 0.2 MG/ML SYR ONE ×3 (12:38→16:17)
[2020-01-09] MEDS: VASOPRESSIN 20 UNIT/ML VIAL ONE ×3 (12:39→14:56)
[2020-01-09] MEDS ORDERED: VECURONIUM 10 MG/VIAL IV ONE (14:12)
[2020-01-09] MEDS ORDERED: BUPIVACAINE 0.25% PF 10 ML VIAL ONE (14:49)
[2020-01-09] MEDS ORDERED: CEFAZOLIN SODIUM 1 GM/VIAL ONE (15:12)
[2020-01-09] MEDS ORDERED: KETOROLAC 30 MG/ML INJ ONE (15:47)
[2020-01-09] MEDS ORDERED: MORPHINE 10 MG/ML VIAL ONE (15:47)
[2020-01-09] MEDS ORDERED: NEOSTIGMINE 1 MG/ML -5 ML ONE (16:17)
[2020-01-09 16:28] VITALS: O2SAT 100
[2020-01-09] MEDS ORDERED: MEPERIDINE HCL 25 MG/ML SYR IV PRN (16:36)
[2020-01-09] MEDS ORDERED: HYDROCODONE/APAP 5/325 MG TAB PO PRN (16:36)
[2020-01-09] MEDS ORDERED: ACETAMINOPHEN 500 MG TAB PO PRN (16:36)
[2020-01-09] MEDS ORDERED: ONDANSETRON 4 MG/2 ML VIAL IV PRN (16:36)
--- NOTE | 2020-01-09 16:46 | P.BOP ---
Preoperative diagnosis: AUB-A/O, Uterine prolapse stage 2, rectocele stage 2, posterior enterocele Postoperative diagnosis: same Primary procedure: TLH BS, USLScolpopexy, Post repair,enterocele repair Secondary procedure: perineorrhaphy, cysto Field Rep: Jo Hopson Estimated blood loss: 50 Specimen: uterus and tubes Findings: normal ovaries, USLS with ethibond and goretex Anesthesia: General Complications: None Drain(s): Urinary catheter Implants: none Transferred to: Recovery Room Condition: Good
[2020-01-09] MEDS ORDERED: Ringers Lactate 1,000 ML IV SCH (17:00)
[2020-01-09] MEDS: HYDROMORPHONE HCL 1 MG/ML INJ ONE ×2 (17:01→17:06)
[2020-01-09 18:05] VITALS: BMI 36.7
[2020-01-09] MEDS: IBUPROFEN 200 MG TAB PO PRN (21:00)
[2020-01-09] MEDS: METOPROLOL TAR 50 MG TAB PO SCH (21:00)
[2020-01-09] MEDS ORDERED: METOPROLOL TAR 50 MG TAB ONE (21:14)
[2020-01-10] MEDS: IBUPROFEN 200 MG TAB PO PRN (05:00)
[2020-01-10 06:09] LABS: Basophils % 0.5 % (0-1.3); Hematocrit 23.7 % (36.0-45.0); Lymphocytes % 23.9 % (15.3-44.8); MPV 9.1 fL (7.6-11.3); RBC Red Blood Cell Count 3.74 M/uL (3.86-4.86)
[2020-01-10] MEDS: METOPROLOL TAR 50 MG TAB PO SCH (09:30)
[2020-01-10 12:50] VITALS: BP 105/56; TEMP 98.9
--- NOTE | 2020-01-24 02:14 | OP ---
Date of Procedure: 01/09/2020 Surgeon: Shona Ramirez MD Continuation: The posterior vaginal wall epithelium was scored with a 15-blade and then excised leaving the connect lynsey tissue. Then, the Allis clamps placed on the upper vaginal epithelial edges were used to retract for countertraction as the vaginal subepithelial connective tissue was and dissected into the upper half of the posterior compartment. Once this was done and the posterior enterocele was wel l exposed, reached all the way to the uterosacral sutures at the apex. Then, once the enterocele was nicely laid out, this was closed with the help of a 3-0 Monocryl and a pursestring fashion x2. Once this was well reduced, then went ahead with closure of the posterior vaginal wall defect. This was a right lateral wall defect, so the fascia was found that appeared to be ragged. This was then sutur ed to the right lateral wall edges that were also and raised and these were brought togethe r with a continuous running 2-0 PDS suture all the way down to the perineal body. Here, the perineal body was rebuilt using 2-0 Vicryl suture. Three interrupted sutures were placed using a rectovagina l exam. Then, after changing the gloves, the sutures were tied down. Then, the distal part of the p osterior wall was reattached to the perineal body and the 2-0 PDS was tied above in the distal third of the connective tissue. Then, vaginal epithelium was slightly trimmed and made symmetric and then closed with the help of 2-0 Vicryl in a continuous running horizontal mattress fashion. Then, the perineorrhaphy was performed with the help of a 3-0 Vicryl suture and knot placed after incision closed inside the hymenal ring. Rectal exam was performed. No evidence of any trauma or foreign body here. The patient tolerated th e procedure well. Yousif was left in place. Instrument, needle, and sponge counts x3 were correct at the end of the case. The patient tolerated the procedure well. EBL was 50. Urine output 350. LR 1999. SK/MODL Voice ID: [id number] Report ID: [id number]
--- NOTE | 2020-01-24 03:08 | OP ---
Date of Procedure: 01/09/2020 Surgeon: Shona Ramirez MD Writing Center Director: Jo Hopson. Preoperative Diagnoses: Abnormal uterine bleeding (AUB-A/O), uterine prolapse stage II, rectocele st age II, posterior enterocele. Postoperative Diagnoses: Abnormal uterine bleeding (AUB-A/O), uterine prolapse stage II, rectocele s tage II, posterior enterocele. Procedures Performed: 1.Total laparoscopic hysterectomy, bilateral salpingectomy. 2.Uterosacral ligament suspension, colpopexy. 3.Posterior wall repair (rectocele repair) and posterior enterocele repair, perineorrhaphy, and cyst oscopy. Estimated Blood Loss: 50 mL. Specimens: Uterus, bilateral tubes. Anesthesia: General endotracheal. Complications: None. Drains: Yousif catheter. Implants: None. Urinary Output: Less than 50. Condition: Stable. Findings: Uterus enlarged. Bilateral tubes ligated. No other lesions were seen. The patient was a nemic, no major bleeding. Had preoperative medical clearance. Her POP-Q is as follows: 0, +1, +2, genital hiatus 5, moderate 7-8, 0, 0, and - 2. After the patient was evaluated in the office, she was counseled on all the options of the medical tr eatment using pelvic floor muscle exercises, Kegel's at home pessary, then surgical management abdomi novaginal with and without uterine preservation. The patient had history of incontinence repair in 2 007 with a sling and did not have any significant stress urinary incontinence. On urodynamic testing , her urethral pressure was only 53 cm of water, but with no demonstrable stress incontinence despite a reduction stress test. Her postvoid residual slightly higher in the mid 100s; however, no recurre nt bladder infection, so plan was to just address her prolapse, no need for any incontinence treatmen t at this time. The patient was consented for hysterectomy, bilateral salpingectomy, then uterosacra l ligament suspension as this avoids any graft repair and repair needing a synthetic graft. Also, gi dylan the fact that she is very young and if the uterosacral are robust, then the apex re-attached to t hem would provide excellent apical support, which is the biggest defect of the patient. Discussed ab out all the benefits, risks, efficacy, recurrence rates with this kind of a repair. Then, the patien t was consented for this. After she was taken back to OR, 3 g of Ancef were given, SCDs were placed, placed in a supine fashion on the operating table. After she was taken back, the patient had a cough preop when she was treate d with antibiotics with at least a week before she was brought in, her cough had subsided, and she wa s doing well. So, plan was to proceed with her hysterectomy and prolapse repair and posterior vagina l wall repair. After general anesthesia was given, she was placed in a dorsal lithotomy position. SCDs were started . Abdomen, vulva, vagina, and perineum prepped and draped in a sterile fashion. Yousif was placed to drain the bladder and large VCare introduced into the uterus and fixed in place. This area was then draped. Retrograde filling arrangement made for the Yousif. 1 cm infraumbilical incision was made with a scalpel using the open laparoscopy technique. Fascia wa s incised, tagged with 0 Vicryl sutures. Peritoneum entered bluntly. S-retractors were placed. Has son introduced. Insufflated adequately. Site of entry was checked, unremarkable. The patient was p laced in Trendelenburg. A 5 mm left lower quadrant and right lower quadrant ports were placed, 10 mm suprapubic port was placed, and the bowel was retracted using epiploicae, tagged with 3-0 Monocryl s uture, pulled up through the left upper quadrant incision with a Andrew-Luz needle. The ureters were visualized from the pelvic brim to the ureteric tunnel. No evidence of any anatomic al distortion or scarring. No evidence of any endometriosis. The procedure was then started. The left tube was dissected. Utero-ovarian ligament, round ligament, broad ligament, and anterior pe ritoneum raised to create a bladder flap. Bladder flap dissected inferior to the vaginal cuff. Then posteriorly, dissection was carried on the peritoneum to the uterosacral ligament and the vessels we re skeletonized. Opposite side utero-ovarian ligament and mesosalpinx tube were also cut, then the r ound ligament was taken down. The rest of the tube was removed. The broad ligament was opened up an teriorly and bladder flap connected posteriorly. Dissection was taken to the right uterosacral and p osterior peritoneum. Then, the bladder was dissected inferiorly. VCare cup was well exposed. The v essels were taken down on the right with the help of the bipolar basket tip and the LigaSure. Kobi al ligaments were taken down with the help of the LigaSure. Similar dissection was performed on the opposite side taking down the vessels and the cardinal ligaments. After the cup was exposed, monopol ar hook blade to detach the specimen after cutting circumferentially. Specimen pulled out through th e vaginal although it was snug-fitted all the specimens were retrieved, labeled, ovaries l eft intact and in good place. After visualizing the uterosacral ligaments, thorough irrigation and suction were performed on the va ginal cuff. Cuff was closed with the help of 0 Vicryl sutures at both angles. Then, PDS sutures x3 were placed in a center to close it in [id number] fashion. Then, 3-0 Monocryl suture was then t aken and placed on the right uterosacral ligament pulling it medially. The anterior vaginal wall was dissected another 1.5 cm in order for us to see the anterior vaginal wall very clearly. Then, 0 Eth ibond suture was placed through the distal right uterosacral ligament from medial to lateral and then lateral to medial and then taken down through the posterior vaginal wall, then through the anterior vaginal wall, and this was held on a clamp. A similar suture but a more proximal suture on the utero sacral was passed with the help of the [place]-Robert on a needle medial to lateral and lateral to medial, then passing through the posterior and anterior vaginal guadalupe through the connective tissu es medial to the Ethibond suture. Then, these 2 sutures were tied down without any problems, no air knots. On the other side, similar suture was placed distal uterosacral to the lateral vaginal cuff, then pro ximal uterosacral to the medial aspect of the Ethibond suture on the cuff. Effort was made for all 4 permanent sutures not to penetrate the vaginal epithelial lining to prevent any erosion or vaginitis . Once these sutures were tied down securely, then pelvic exam was performed. The apex appeared to be very nicely lifted up to -7 to 8 cm. Similar dissection appeared to have occurred on both sides and the uterosacrals were fairly robust. Thorough irrigation and suction were performed since the anterior wall and the apex were pulled up an d went on to finish the laparoscopic repair. No evidence of electrical, mechanical, or thermal injur y to the ureters. Cystoscopy was performed with a 17-Scottish sheath, 30-degree lens, normal saline an d both ureteric orifices had strong jets of urine from them and no evidence of any foreign body in th e bladder or trauma. Bladder was drained, Yousif was placed, then came back laparoscopically. After thorough irrigation and suction were performed, the retaining suture on the epiploica was remov ed. There was excellent hemostasis everywhere. Then, all the trocars were removed under direct visi on and gas desufflated and Erin removed. All the incisional sites were injected with Jim's oliva ing at the beginning and end of the procedure with the umbilical incision. All the skin incisions with interrupted 4-0 Vicryl, 0 Vicryl at the fascia on the umbilicus and the s uprapubic area. The Yousif was retracted superiorly. The posterior wall was then repaired. Two Allis clamps were placed on the inner aspect of the vestibule where the hymen remnants were seen. Then, a midline mid posterior wall Allis clamp was placed, injected with 20 units of vasopressin an d 40 cc of normal saline, 30 cc was injected in the midline as well on the sides, then, on the perine um. Then, a laura-shaped incision was made in the posterior distal midline in the vagina. A diamo nd-shaped incision was made with a scalpel. The vaginal epithelium was skinned off leaving as much o f the underlying connective tissue as possible. Then, during the rectovaginal exam, changed the glov e, realized that there was relative site-specific defect DICTATION ENDS HERE LYNETTE/KAM Voice ID: [id number] Report ID: [id number]
== END 2020-01-10 14:30 | disposition home or self-care (01) ==
LOC: OR 09:26 → 2ND-WC 16:52 → OR 01-10 14:30
PROVIDERS: ATTEND Obstetrics & Gynecology
PROC: 0UT74ZZ Resection of Bilateral Fallopian Tubes, Percutaneous Endoscopic Approach (ICD-10-PCS; 2020-01-09)
PROC: 0USG7ZZ Reposition Vagina, Via Natural or Artificial Opening (ICD-10-PCS; 2020-01-09)
PROC: 0JQC0ZZ Repair Pelvic Region Subcutaneous Tissue and Fascia, Open Approach (ICD-10-PCS; 2020-01-09)
PROC: 0WQNXZZ Repair Female Perineum, External Approach (ICD-10-PCS; 2020-01-09)
PROC: 0UT94ZZ Resection of Uterus, Percutaneous Endoscopic Approach (ICD-10-PCS; principal; 2020-01-09 12:30)
DX: N92.0 Excessive and frequent menstruation with regular cycle (principal); N81.2 Incomplete uterovaginal prolapse; N32.81 Overactive bladder; R05 Cough; N83.8 Other noninflammatory disorders of ovary, fallopian tube and broad ligament; N72 Inflammatory disease of cervix uteri; N80.0 Endometriosis of uterus; I10 Essential (primary) hypertension; F32.9 Major depressive disorder, single episode, unspecified; J44.9 Chronic obstructive pulmonary disease, unspecified; F17.210 Nicotine dependence, cigarettes, uncomplicated; Z20.828 Contact with and (suspected) exposure to other viral communicable diseases
CPT/HCPCS: 58571; 57283; 57250; 87088; 85025 ×2; 87086; 80048; 36415 ×2; 86900; 86850; 81025; 85610; 86901; 88307; 85730; 87077; 87186; 71046; 94010 ×2; U0002; J2704; J1100; J2250; J3010; J1170; J2710; J0690 ×3; J7120 ×5; J2405; 81003; 81015

== ENCOUNTER 2023-02-26 13:30 | Emergency (ER) | payer SELFPAY ==
[2023-02-26 14:27] LABS: Absolute Lymphocytes (CBC) 2.2 K/uL (0.7-4.9); Lymphocytes % 19.8 % (15.3-44.8); MCV 83.9 fL (80-100); MPV 10.1 fL (7.6-11.3); Platelets 215 thou/uL (152-406); RBC Red Blood Cell Count 4.52 M/uL (3.86-4.86)
[2023-02-26 14:34] LABS: Specific Gravity 1.019 (1.005-1.030)
[2023-02-26] MEDS ORDERED: ONDANSETRON 4 MG/2 ML VIAL ONE ×2 (14:45→17:24)
[2023-02-26] MEDS ORDERED: NA CHLORIDE 0.9% 1,000 ML ONE (14:45)
[2023-02-26] MEDS ORDERED: MORPHINE 4 MG/ML SYR ONE ×2 (14:45→17:23)
[2023-02-26 14:48] LABS: Albumin 3.3 g/dL (3.4-5.0); Bilirubin Total 0.3 mg/dL (0.2-1.0); Potassium 3.5 mEq/L (3.5-5.1); Protein, Total 7.1 g/dL (6.4-8.2)
[2023-02-26 14:49] LABS: Specific Gravity 1.019 (1.005-1.030); Transitional Epithelial <5 /HPF (None Seen); Urine Bacteria <20 /HPF (<20); Urine Bilirubin NEGATIVE (Negative); Urine Blood 2+ (Negative); Urine Clarity Extremely Turbid (Clear); Urine Color Yellow (Yellow); Urine Glucose NEGATIVE (Negative); Urine Mucus Slight /HPF (None Seen); Urine Protein 1+ (Negative); Urine RBC 21-50 /HPF (None Seen); Urine Urobilinogen Normal (Normal); Urine pH 6.5 (5.0-7.0)
--- NOTE | 2023-02-26 15:24 | RAD REPORT ---
EXAM DESCRIPTION: CTAbdomen Pelvis W Contrast - 02/26/2023 3:01 pm CLINICAL HISTORY: Abdominal pain. lower abdomen pain, rlq worse than llq COMPARISON: No comparisons TECHNIQUE: Biphasic CT imaging of the abdomen and pelvis was performed with 100 ml non-ionic IV cont rast. All CT scans are performed using dose optimization technique as appropriate and may include automated exposure control or mA/KV adjustment according to patient size. FINDINGS: The lung bases are clear. The liver demonstrates diffuse fatty infiltration. Spleen, pancreas, adrenal glands and right kidney are within normal limits. 16 mm stone is present in the left renal pelvis. No significant hydronephro sis. Cholelithiasis. No bowel obstruction, free air, free fluid or abscess. The appendix is not identified as a discrete structure, however, no secondary findings of appendicitis are identified. No evidence of significan t lymphadenopathy. No suspicious bony findings. IMPRESSION: Cholelithiasis. 16 mm left renal pelvis stone minimal left hydronephrosis.
[2023-02-26] MEDS ORDERED: CEFTRIAXONE 2000 MG/VIAL ONE (16:05)
[2023-02-26] MEDS ORDERED: NA CHLORIDE 0.9% 50 ML ONE (16:05)
--- NOTE | 2023-02-26 16:50 | RAD REPORT ---
EXAM DESCRIPTION: US - Abdomen Exam Limited - 02/26/2023 4:40 pm CLINICAL HISTORY: Abd pain COMPARISON: No comparisons FINDINGS: The gallbladder demonstrates calcified shadowing gallstone. No pericholecystic fluid or ga llbladder wall thickening. The common bile duct is normal measuring 3 mm. The liver demonstrates no findings of intrahepatic biliary dilatation. IMPRESSION: Cholelithiasis.
--- NOTE | 2023-02-26 17:16 | ER ---
Nurse's Notes [facility] Name: Anay Witt Age: 47 yrs Sex: Female : 1975 Arrival Date: 02/26/2023 Time: 13:30 Bed 6 Private MD: Diagnosis: Calculus of kidney-right;UTI/ Urinary tract infection, site not specified;Other cholelithiasis without obstruction Presentation: 02/26 13:46 Chief complaint: Burning with urination x 3 days, pelvic pain and suprapubic pain that hb radiates to low back that started this morning. Coronavirus screen: At this time, the client does not indicate any symptoms associated with coronavirus-19. Ebola Screen: No symptoms or risks identified at this time. Initial Sepsis Screen: Does the patient meet any 2 criteria? No. Patient's initial sepsis screen is negative. Does the patient have a suspected source of infection? No. Patient's initial sepsis screen is negative. Risk Assessment: Do you want to hurt yourself or someone else? Patient reports no desire to harm self or others. Onset of symptoms was February 24, 2023. 13:46 Method Of Arrival: Wheelchair hb 13:46 Acuity: AUBRIE 3 hb Triage Assessment: 17:15 General: Appears uncomfortable, Behavior is cooperative. Pain: Complains of pain in iw abdomen. GI: Reports lower abdominal pain, nausea. Historical: - Allergies: 13:48 No Known Allergies; hb - Home Meds: 13:48 None [Active]; hb - PMHx: 13:48 Hypertension; Mitral Valve Prolapse; hb - PSHx: 13:48 Tonsillectomy; Hysterectomy; hb - Immunization history:: Adult Immunizations up to date. - Social history:: Smoking status: Patient denies any tobacco usage or history of. Screenin:00 [facility] ED Fall Risk Assessment (Adult) Score/Fall Risk Level 0 - 2 = Low Risk. Abuse iw screen: Denies threats or abuse. Denies injuries from another. Nutritional screening: No deficits noted. Tuberculosis screening: No symptoms or risk factors identified. Assessment: 15:12 Reassessment: Patient appears in no apparent distress at this time. Patient and/or iw family updated on plan of care and expected duration. Pain level reassessed. Patient states feeling better. 16:00 Reassessment: Patient appears in no apparent distress at this time. Patient and/or iw family updated on plan of care and expected duration. Pain level reassessed. Patient is alert, oriented x 3, equal unlabored respirations, skin warm/dry/pink. 17:04 General: Appears in no apparent distress. Pt ambulatory to the restroom. . kd3 18:00 GI: Bowel sounds present X 4 quads. Abd is soft and non tender. iw 18:10 Reassessment: pt clutching chest and saying she is having heart burn pain and pian iw under her ribs. Vital Signs: 13:46 BP 192 / 120; Pulse 83; Resp 16; Temp 98(O); Pulse Ox 97% on R/A; Weight 133.81 kg; hb Height 5 ft. 9 in. ; Pain 8/10; 15:12 BP 137 / 79; Pulse 72; Resp 16; Pulse Ox 99% on R/A; Pain 5/10; iw 17:03 BP 135 / 82; Pulse 77; Resp 18; Pulse Ox 98% on R/A; kd3 13:46 Body Mass Index 43.56 (133.81 kg, 175.26 cm) hb 13:46 Pain Scale: Adult hb 15:12 Pain Scale: Adult iw ED Course: 13:32 Patient arrived in ED. mg5 13:35 Thong Littlejohn PA is PHCP. cp 13:35 Marco Blackwood MD is Attending Physician. cp 13:48 Triage completed. hb 13:49 Arm band placed on. hb 13:56 Rubi Chavez, RN is Primary Nurse. iw 14:17 Initial lab(s) drawn, by ok, sent to lab. Inserted saline lock: 20 gauge in left iw antecubital area, using aseptic technique. Blood collected. 15:02 CT Abd/Pelvis - IV Contrast Only In Process Unspecified. EDMS 16:42 US Abdomen Limited: gallbladder In Process Unspecified. EDMS 18:10 Patient has correct armband on for positive identification. iw 18:31 No provider procedures requiring assistance completed. IV discontinued, intact, iw bleeding controlled, No redness/swelling at site. Pressure dressing applied. Administered Medications: 14:39 Drug: NS 0.9% IV 1000 ml IV at 1 bolus Per protocol; 1000 mL bolus Route: IV; Rate: 1 iw bolus; Site: left antecubital; 16:30 Follow up: IV Status: Completed infusion iw 14:39 Drug: morphine IVP or IV 4 mg IVP once over 4 mins Route: IVP; Infused Over: 4 mins; iw Site: left antecubital; 15:00 Follow up: Response: No adverse reaction iw 14:39 Drug: Ondansetron IVP 4 mg IVP once; over 2 minutes Route: IVP; Site: left antecubital; iw 15:00 Follow up: Response: No adverse reaction iw 15:59 Drug: Rocephin IV 2 grams IV at calculated rate once; Given slow IV push per pharmarcy iw instructions Route: IV; Rate: calculated rate; Site: left antecubital; 16:15 Follow up: IV Status: Completed infusion iw 17:13 Drug: Ondansetron IVP 4 mg IVP once; over 2 minutes Route: IVP; Site: left antecubital; kd3 18:00 Follow up: Response: No adverse reaction iw 17:17 Drug: morphine IVP or IV 4 mg IVP once over 4 mins Route: IVP; Infused Over: 4 mins; kd3 Site: left antecubital; 17:40 Follow up: Response: No adverse reaction iw 18:32 Drug: GI Cocktail without - (Maalox PO 30 ml, Lidocaine Mucous Membrane 2 % 15 iw ml) PO once Route: PO; 18:40 Follow up: Response: No adverse reaction iw Medication: 16:00 VIS not applicable for this client. iw Outcome: 17:16 Discharge ordered by . cp 18:30 Discharge instructions given to patient, family, Instructed on discharge instructions, iw follow up and referral plans. medication usage, Demonstrated understanding of instructions, follow-up care, medications, Prescriptions given X 4, 18:31 Discharged to home ambulatory, with family, iw 18:31 Condition: good 18:32 Patient left the ED. iw Signatures: Dispatcher [employer] EDRubi Hanna RN RN iw Thong Littlejohn PA PA cp Baxter, Heather, RN RN hb Doucette, Kyli, RN RN kd3 Jenni Allen mg5
--- NOTE | 2023-02-26 17:17 | EDPHYS ---
Physician Documentation [facility] Name: Anay Witt Age: 47 yrs Sex: Female : 1975 Arrival Date: 02/26/2023 Time: 13:30 Bed 6 Private MD: ED Physician Marco Blackwood HPI: 02/26 14:00 This 47 yrs old Female presents to ER via Wheelchair with complaints of Abdominal Pain. cp 14:00 The patient presents with abdominal pain in the lower abdomen, RLQ worse than LLQ. cp 14:00 Onset: The symptoms/episode began/occurred 3 day(s) ago. cp 14:00 The symptoms radiate to Associated signs and symptoms: Pertinent positives: dysuria, cp Pertinent negatives: blood in stools, chest pain, constipation, diarrhea, fever, headache, hematuria, vaginal discharge, vomiting. The symptoms are described as constant. Severity of pain: in the emergency department the pain is unchanged despite home interventions. Historical: - Allergies: 13:48 No Known Allergies; hb - Home Meds: 13:48 None [Active]; hb - PMHx: 13:48 Hypertension; Mitral Valve Prolapse; hb - PSHx: 13:48 Tonsillectomy; Hysterectomy; hb - Immunization history:: Adult Immunizations up to date. - Social history:: Smoking status: Patient denies any tobacco usage or history of. ROS: 14:05 Constitutional: Negative for body aches, chills, fever, poor PO intake, cp 14:05 Eyes: Negative for injury, pain, redness, and discharge, cp 14:05 ENT: Negative for drainage from ear(s), ear pain, sore throat, difficulty swallowing, difficulty handling secretions, 14:05 Cardiovascular: Negative for chest pain, edema, palpitations, 14:05 Respiratory: Negative for cough, shortness of breath, wheezing, 14:05 Abdomen/GI: Positive for abdominal pain, nausea, of the right lower quadrant and left lower quadrant, Negative for vomiting, diarrhea, constipation, 14:05 Neuro: Negative for altered mental status, dizziness, headache, weakness, 14:05 Back: Positive for radiated pain, cp 14:05 All other systems are negative, cp Exam: 14:10 Constitutional: The patient appears in no acute distress, alert, awake, cp non-diaphoretic, non-toxic, well developed, well nourished, obese, uncomfortable, 14:10 Head/Face: Normocephalic, atraumatic. cp 14:10 Eyes: Periorbital structures: appear normal, Conjunctiva: normal, no exudate, no injection, Sclera: no appreciated abnormality, Lids and lashes: appear normal, bilaterally, 14:10 ENT: External ear(s): are unremarkable, Nose: is normal, Mouth: Lips: moist, Oral mucosa: pink and intact, moist, Posterior pharynx: is normal, airway is patent, no erythema, no exudate, 14:10 Chest/axilla: Inspection: normal, 14:10 Cardiovascular: Rate: normal, Rhythm: regular, 14:10 Respiratory: the patient does not display signs of respiratory distress, Respirations: normal, no use of accessory muscles, no retractions, labored breathing, is not present, Breath sounds: are clear throughout, no decreased breath sounds, no stridor, no wheezing, 14:10 Abdomen/GI: Inspection: obese Bowel sounds: active, all quadrants, Palpation: soft, in all quadrants, moderate abdominal tenderness, in the right lower quadrant and left lower quadrant, rebound tenderness, is not appreciated, involuntary guarding, is not appreciated, 14:10 Back: CVA tenderness, is absent, 18:27 ECG was reviewed by the Attending Physician. cp Vital Signs: 13:46 BP 192 / 120; Pulse 83; Resp 16; Temp 98(O); Pulse Ox 97% on R/A; Weight 133.81 kg; hb Height 5 ft. 9 in. ; Pain 8/10; 15:12 BP 137 / 79; Pulse 72; Resp 16; Pulse Ox 99% on R/A; Pain 5/10; iw 17:03 BP 135 / 82; Pulse 77; Resp 18; Pulse Ox 98% on R/A; kd3 13:46 Body Mass Index 43.56 (133.81 kg, 175.26 cm) hb 13:46 Pain Scale: Adult hb 15:12 Pain Scale: Adult iw MDM: 13:40 Patient medically screened. cp 15:00 Differential diagnosis: appendicitis, cholecystitis, Cholelithiasis, non-specific abd cp pain, Pyelonephritis, Ureterolithiasis, urinary tract infection. 17:15 Data reviewed: vital signs, nurses notes, lab test result(s), radiologic studies, CT cp scan. 17:15 I considered the following discharge prescriptions or medication management in the emergency department Medications were administered in the Emergency Department. See MAR. Counseling: I had a detailed discussion with the patient and/or guardian regarding the historical points, exam findings, and any diagnostic results supporting the discharge/admit diagnosis, lab results, radiology results, to return to the emergency department if symptoms worsen or persist or if there are any questions or concerns that arise at home. Special discussion: Based on the patient's Hx, exam, and Dx evaluation, there is no indication for emergent surgery or inpatient Tx. It is understood by the patient/guardian that if the Sx's persist or worsen they need to return immediately for re-evaluation. 19:30 ED course: spoke with pharmacy, prescribed Vantin too expensive. RX changed to Bactrim cp to take 1 tab bid . 02/26 13:54 Order name: CBC with Diff; Complete Time: 14:49 02/26 14:49 Interpretation: Normal except: WBC 11.30; BASO% 1.4. 02/26 13:54 Order name: CMP; Complete Time: 14:49 02/26 14:49 Interpretation: Normal except: AST 13; ALB 3.3; GLOB 3.8; A/G 0.9. 02/26 13:54 Order name: Lipase; Complete Time: 14:49 02/26 14:50 Interpretation: Reviewed. 02/26 13:54 Order name: Test, Urine; Complete Time: 14:49 02/26 14:50 Interpretation: Reviewed. 02/26 13:54 Order name: Urinalysis w/ reflexes; Complete Time: 15:35 02/26 15:36 Interpretation: Normal except: [facility] Extremely Turbid; UBLD 2+; UPROT 1+; UNIT 2+; UESTR cp 500; UWBC >50; URBC 21-50. 02/26 15:14 Order name: Urine Culture EDNE 02/26 13:58 Order name: CT Abd/Pelvis - IV Contrast Only; Complete Time: 15:35 02/26 15:38 Order name: US Abdomen Limited: gallbladder; Complete Time: 16:57 02/26 16:57 Interpretation: Report reviewed. 02/26 18:08 Order name: EKG; Complete Time: 18:33 02/26 13:54 Order name: IV Saline Lock; Complete Time: 14:39 cp 02/26 13:54 Order name: Labs collected and sent; Complete Time: 14:39 cp 02/26 15:38 Order name: NPO; Complete Time: 15:46 cp 02/26 18:08 Order name: EKG - Nurse/Tech; Complete Time: 18:32 cp EC:27 Rate is 60 beats/min. Rhythm is regular. [place] interval is normal. QRS interval is normal. cp QT interval is normal. T waves are Inverted in leads III, aVR, V2, V3. Interpreted by me. Reviewed by me. Administered Medications: 14:39 Drug: NS 0.9% IV 1000 ml IV at 1 bolus Per protocol; 1000 mL bolus Route: IV; Rate: 1 iw bolus; Site: left antecubital; 16:30 Follow up: IV Status: Completed infusion iw 14:39 Drug: morphine IVP or IV 4 mg IVP once over 4 mins Route: IVP; Infused Over: 4 mins; iw Site: left antecubital; 15:00 Follow up: Response: No adverse reaction iw 14:39 Drug: Ondansetron IVP 4 mg IVP once; over 2 minutes Route: IVP; Site: left antecubital; iw 15:00 Follow up: Response: No adverse reaction iw 15:59 Drug: Rocephin IV 2 grams IV at calculated rate once; Given slow IV push per pharmarcy iw instructions Route: IV; Rate: calculated rate; Site: left antecubital; 16:15 Follow up: IV Status: Completed infusion iw 17:13 Drug: Ondansetron IVP 4 mg IVP once; over 2 minutes Route: IVP; Site: left antecubital; kd3 18:00 Follow up: Response: No adverse reaction iw 17:17 Drug: morphine IVP or IV 4 mg IVP once over 4 mins Route: IVP; Infused Over: 4 mins; kd3 Site: left antecubital; 17:40 Follow up: Response: No adverse reaction iw 18:32 Drug: GI Cocktail without - (Maalox PO 30 ml, Lidocaine Mucous Membrane 2 % 15 iw ml) PO once Route: PO; 18:40 Follow up: Response: No adverse reaction iw Disposition: 19:49 Co-signature as Attending Physician, Marco Blackwood MD I reviewed the patient's care rt provided by the Advanced Practice Provider and agree with the diagnosis and treatment plan. Disposition Summary: 02/26/23 17:16 Discharge Ordered Notes: Location: Home cp Problem: new cp Symptoms: have improved cp Condition: Stable cp Diagnosis - Calculus of kidney - right cp - UTI/ Urinary tract infection, site not specified cp - Other cholelithiasis without obstruction cp Followup: cp - With: Private Physician - When: 2 - 3 days - Reason: Recheck today's complaints Discharge Instructions: - Discharge Summary Sheet cp - Kidney Stones cp - Urinary Tract Infection, Adult cp - Cholelithiasis cp Forms: - Medication Reconciliation Form cp - Thank You Letter cp - Antibiotic Education cp - Prescription Opioid Use cp - Patient Portal Instructions cp - Leadership Thank You Letter cp - Work release form bc6 Prescriptions: - Zofran 4 mg Oral Tablet - take 1 tablet ORAL route every 12 hours As needed; 20 tablet; Refills: 0, cp Product Selection Permitted - Diclofenac Sodium 75 mg Oral tablet, delayed release (enteric coated) - take 1 tablet ORAL route 2 times per day; 20 tablet; Refills: 0, Product cp Selection Permitted - cefpodoxime 200 mg Oral tablet - take 1 tablet ORAL route every 12 hours with food; 20 tablet; Refills: 0, cp Product Selection Permitted Signatures: Dispatcher [employer] Rubi Osorio RN RN iw Thong Littlejohn PA PA cp Diana Franco RN RN hb Doucette, Kyli, RN RN kd3 Marco Blackwood MD MD rt Corrections: (The following items were deleted from the chart) 02/27 10:20 02/26 14:05 All other systems are negative, cp cp
[2023-02-26] MEDS ORDERED: MAGNES/ALUMIN/SIMET 30ML UCUP ONE (18:39)
[2023-02-26 19:03] VITALS: TEMP 98
[2023-02-26 19:15] VITALS: BP 135/82; O2SAT 98
--- NOTE | 2023-03-02 13:55 | EKG ---
Test Date: 2023-02-26 Test Time: 18:20:12 Assembler Molded Frames: LUCIA MEASUREMENT RESULTS: Intervals: Rate: 60 KS: 160 QRSD: 86 QT: 466 QTc: 466 Elkin: P: 65 KS: 160 QRS: 66 T: 15 INTERPRETIVE STATEMENTS: Normal sinus rhythm Normal ECG Compared to ECG 02/26/2023 18:19:43 Sinus bradycardia no longer present Sinus arrhythmia no longer present Electronically Signed On 03-02-23 13:43:15 SEARCH PLANNER by Juan Grant
--- NOTE | 2023-03-02 13:55 | EKG ---
Test Date: 2023-02-26 Test Time: 18:19:43 Perinatal Instructor: LUCIA MEASUREMENT RESULTS: Intervals: Rate: 45 IL: 138 QRSD: 80 QT: 466 QTc: 403 Keyser: P: 59 IL: 138 QRS: 68 T: 20 INTERPRETIVE STATEMENTS: Marked sinus bradycardia with sinus arrhythmia Abnormal ECG No previous ECG available for comparison Electronically Signed On 03-02-23 13:43:16 DISHTANK OPERATOR by Juan Grant
== END 2023-02-26 18:32 | disposition home or self-care (01) ==
LOC: ER 13:30
DX: N20.0 Calculus of kidney (principal); N39.0 Urinary tract infection, site not specified; K80.80 Other cholelithiasis without obstruction
CPT/HCPCS: 36415; 74177; 76705; 80053; 81001; 81025; 83690; 85025; 87077; 87086; 87088; 87186; 93005; 96361; 96365; 96375; 99284; J0696; J2405; J7030; Q9967

== ENCOUNTER 2023-11-30 15:32 | Emergency (ER) | payer SELFPAY ==
[2023-11-30] MEDS ORDERED: NA CHLORIDE 0.9% 1,000 ML ONE (16:38)
[2023-11-30] MEDS ORDERED: MORPHINE 4 MG/ML SYR ONE (16:38)
[2023-11-30] MEDS ORDERED: ONDANSETRON 4 MG/2 ML VIAL ONE (16:38)
[2023-11-30 17:10] LABS: Specific Gravity 1.024 (1.005-1.030); Urine Bacteria <20 /HPF (<20); Urine Bilirubin NEGATIVE (Negative); Urine Blood 1+ (Negative); Urine Clarity Turbid (Clear); Urine Color Yellow (Yellow); Urine Culture Reflex Order NOT NEEDED; Urine Glucose NEGATIVE (Negative); Urine Ketones NEGATIVE (Negative); Urine Microscopic Reflex YN ORDER UMIC; Urine Mucus 1+ /HPF (None Seen); Urine Nitrite NEGATIVE (Negative); Urine Protein 1+ (Negative); Urine Urobilinogen Normal (Normal); Urine WBC <5 /HPF (<5)
--- NOTE | 2023-11-30 17:22 | RAD REPORT ---
EXAM DESCRIPTION: CT - Stone Protocol - 11/30/2023 4:49 pm CLINICAL HISTORY: Flank pain. FLANK PAIN COMPARISON: Abdomen Pelvis W Contrast dated 02/26/2023 TECHNIQUE: Axial images were obtained without oral or IV contrast. Lack of contrast limits solid org an and vascular assessment. The [id number] spans the entirety of the system partially obscuring uppermost abdomen and lung bases. Coronal reformatted images were obtained and reviewed. All CT scans are performed using dose optimization technique as appropriate and may include automated exposure control or mA/KV adjustment according to patient size. FINDINGS: The lower lung toscano are clear. Cholelithiasis. Imaged portions of the liver and spleen show no suspicious findings on non-contrast imaging. The panc reas and adrenal glands are normal. No pathologic lymphadenopathy in the abdomen or pelvis. 17 mm oblong stone in the left renal pelvis. No bowel obstruction, free air, free fluid or abscess. Normal appendix noted. Mild lumbosacral spondylosis. IMPRESSION: 17 mm oblong stone left renal pelvis. Cholelithiasis.
[2023-11-30 17:28] LABS: Absolute Basophils 0.1 K/uL (0-0.5); Absolute Eosinophils 0.1 K/uL (0-0.5); Absolute Lymphocytes (CBC) 1.8 K/uL (0.7-4.9); Absolute Monocytes 0.6 K/uL (0.1-1.3); Absolute Neutrophil 8.3 K/uL (1.8-8.0); Basophils % 0.6 % (0-1.3); Eosinophils % 0.7 % (0-4.4); Hematocrit 43.7 % (36.0-45.0); Hemoglobin 14.6 g/dL (12.0-15.0); Lymphocytes % 16.6 % (15.3-44.8); MCH 28.6 pg (27.0-35.0); MCHC 33.3 g/dL (32.0-36.0); MCV 85.9 fL (80-100); MPV 9.7 fL (7.6-11.3); Monocytes % 5.5 % (3.3-12.3); Neutrophils % 76.6 % (41.7-73.7); Platelets 235 thou/uL (152-406); RBC Red Blood Cell Count 5.09 M/uL (3.86-4.86); Red Cell Distribution Width 13.7 % (12.1-15.2)
[2023-11-30 17:44] LABS: Albumin 3.4 g/dL (3.4-5.0); Albumin/Globulin Ratio 0.9 (1.1-1.8); Anion Gap 6.7 mEq/L (5.0-15.0); Bilirubin Total 0.5 mg/dL (0.2-1.0); Globulin 3.6 g/dL (2.3-3.5); Potassium 3.7 mEq/L (3.5-5.1)
--- NOTE | 2023-11-30 17:54 | EDPHYS ---
Physician Documentation [facility] Name: Anay Witt Age: 48 yrs Sex: Female : 1975 Arrival Date: 11/30/2023 Time: 15:32 Bed 2 Private MD: ED Physician Thong Peña HPI: 11/29 18:19 This 48 yrs old Female presents to ER via Wheelchair with complaints of Flank Pain - kb left. 18:19 Pt is a 48 year old female who presents with left lower abd pain that wraps to left kb flank that started last night. Denies fever, urinary symptoms, n/v. States she did have one episode of diarrhea. Reports she has had similar pain in the past and was told she had gallstones. TECHNICAL SERVICES CONSULTANT: 16:26 LMP N/A - Hysterectomy, Not kb3 Historical: - Allergies: 16:26 No Known Allergies; kb3 - Home Meds: 16:26 None [Active]; kb3 - PMHx: 16:26 Hypertension; mitral valve prolapse; Kidney stone; Gallstone; kb3 - PSHx: 16:26 hysterectomy; Tonsillectomy; kb3 - Immunization history:: Adult Immunizations up to date, Client reports having NOT received the Covid vaccine. Last tetanus immunization: up to date. - Infectious Disease History:: Denies. - Social history:: Smoking status: Patient reports the use of cigarette tobacco products, smokes one pack cigarettes per day. ROS: 18:14 Constitutional: As per HPI kb Exam: 18:14 Constitutional: This is a well developed, well nourished patient who is awake, alert, kb and in no acute distress. Head/Face: Normocephalic, atraumatic. ENT: Moist Mucous membranes Cardiovascular: Regular rate Respiratory: Respirations even and unlabored. No increased work of breathing. Talking in full sentences Skin: Warm, dry with normal turgor. Normal color. MS/ Extremity: Pulses equal, no cyanosis. Neurovascular intact. Full, normal range of motion. Neuro: Awake and alert, GCS 15, oriented to person, place, time, and situation. Moves all extremities. Normal gait. 18:14 Abdomen/GI: Inspection: abdomen appears normal, Bowel sounds: normal, Palpation: soft, in all quadrants, mild abdominal tenderness, in the left lower quadrant, 18:14 Back: CVA tenderness, that is mild, is noted on the left, Vital Signs: 16:24 Weight 122.92 kg; Height 5 ft. 9 in. ; Pain 9/10; kb3 16:28 BP 144 / 97; Pulse 51; Resp 16; Temp 97.6; Pulse Ox 99% on R/A; bc6 18:00 BP 142 / 81; Pulse 58; Resp 16; Pulse Ox 99% ; ko1 16:24 Body Mass Index 40.02 (122.92 kg, 175.26 cm) kb3 16:24 Pain Scale: Adult kb3 MDM: 15:36 Patient medically screened. kb 18:15 Differential diagnosis: nephrolithiasis, pyelonephritis, UTI. Data reviewed: vital kb signs, nurses notes. 18:18 Counseling: I had a detailed discussion with the patient and/or guardian regarding the kb historical points, exam findings, and any diagnostic results supporting the discharge/admit diagnosis, lab results, radiology results, the need for outpatient follow up, a family practitioner, a urologist, to return to the emergency department if symptoms worsen or persist or if there are any questions or concerns that arise at home. Response to treatment: the patient's symptoms have markedly improved after treatment. 11/29 16:27 Order name: CBC with Diff; Complete Time: 17:34 kb 11/29 16:27 Order name: CMP; Complete Time: 17:46 kb 11/29 16:27 Order name: Lipase; Complete Time: 17:46 kb 11/29 16:27 Order name: Test, Urine; Complete Time: 17:10 kb 11/29 16:27 Order name: Urinalysis w/ reflexes; Complete Time: 17:10 kb 11/29 16:27 Order name: CT Stone Protocol; Complete Time: 17:28 kb 11/29 16:27 Order name: IV Saline Lock; Complete Time: 17:15 kb 11/29 16:27 Order name: Labs collected and sent; Complete Time: 17:15 kb Administered Medications: 17:10 Drug: NS 0.9% IV 1000 ml IV at 1000 ml once Route: IV; Rate: 1000 ml; Site: left ko1 antecubital; 18:06 Follow up: Response: No adverse reaction; IV Status: Completed infusion; IV Intake: ld1 1000ml 17:12 Drug: Ondansetron IVP 4 mg IVP once; over 2 minutes Route: IVP; Site: left antecubital; ko1 18:05 Follow up: Response: No adverse reaction ld1 17:14 Drug: morphine IVP or IV 4 mg IVP once over 4 mins Route: IVP; Infused Over: 4 mins; ko1 Site: left antecubital; 18:06 Follow up: Response: No adverse reaction ld1 Disposition Summary: 11/30/23 17:53 Discharge Ordered Notes: Location: Home kb Condition: Stable kb Diagnosis - Lower abdominal pain, unspecified kb Followup: kb - With: Emergency Department - When: As needed - Reason: Worsening of condition Followup: kb - With: Private Physician - When: 2 - 3 days - Reason: Recheck today's complaints, Continuance of care, Re-evaluation by your physician Discharge Instructions: - Discharge Summary Sheet kb - Abdominal Pain, Adult, [id number] kb - Flank Pain, Adult, [id number] kb Forms: - Medication Reconciliation Form kb - Antibiotic Education kb - Prescription Opioid Use kb - Patient Portal Instructions kb - Leadership Thank You Letter kb Addendum: 12/04/2023 15:43 Co-signature as Attending Physician, Thong Peña MD I agree with the assessment and c hinton plan of care. Signatures: Dispatcher [employer] Shana Silva, VENDING SUPERVISOR-C VENDING SUPERVISOR-Thnog Purvis MD MD cha Bradberry, Kelly, RN RN kb3 Katie Woodson RN RN ko1 Isa Cintron RN ld1
--- NOTE | 2023-11-30 17:54 | ER ---
Nurse's Notes [facility] Name: Anay Witt Age: 48 yrs Sex: Female : 1975 Arrival Date: 11/30/2023 Time: 15:32 Bed 2 Private MD: Diagnosis: Lower abdominal pain, unspecified Presentation: 11/29 16:24 Chief complaint: Patient states: Pt reports LLQ abdominal pain that wraps around to kb3 left flank since last night. Denies dysuria. Coronavirus screen: Vaccine status: Patient reports being unvaccinated. Client denies travel out of the [place] in the last 14 days. Ebola Screen: Patient negative for fever greater than or equal to 101.5 degrees Fahrenheit, and additional compatible Ebola Virus Disease symptoms Patient denies exposure to infectious person. Patient denies travel to an Ebola-affected area in the 21 days before illness onset. Initial Sepsis Screen: Does the patient meet any 2 criteria? No. Patient's initial sepsis screen is negative. Does the patient have a suspected source of infection? No. Patient's initial sepsis screen is negative. Risk Assessment: Do you want to hurt yourself or someone else? Patient reports no desire to harm self or others. Onset of symptoms was November 29, 2023 at 19:00. 16:24 Method Of Arrival: Wheelchair kb3 16:24 Acuity: AUBRIE 3 kb3 Triage Assessment: 16:26 General: Appears in no apparent distress. uncomfortable, Behavior is calm, cooperative. kb3 Pain: Complains of pain in left lower quadrant Pain radiates to left low back Pain currently is 9 out of 10 on a pain scale. Quality of pain is described as sharp, stabbing, Pain began 1 day ago. GI: Reports lower abdominal pain, nausea. : Denies burning with urination, inability to void, incontinence. 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 Last tetanus immunization: up to date. - Infectious Disease History:: Denies. - Social history:: Smoking status: Patient reports the use of cigarette tobacco products, smokes one pack cigarettes per day. Screenin:[address] [facility] ED Fall Risk Assessment (Adult) History of falling in the last 3 months, ko1 including since admission No falls in past 3 months (0 pts) Confusion or Disorientation No (0 pts) Intoxicated or Sedated No (0 pts) Impaired Gait No (0 pts) Mobility Assist Device Used No (0 pt) Altered Elimination No (0 pt) Score/Fall Risk Level 0 - 2 = Low Risk Oriented to surroundings, Maintained a safe environment, Educated pt \T\ family on fall prevention, incl call for assistance when getting out of bed, Assessed \T\ reinforced patient's understanding of fall precautions, Provided non-skid footwear, Hourly rounding (assess needs \T\ fall precautionary measures) done. Abuse screen: Denies threats or abuse. Denies injuries from another. Nutritional screening: No deficits noted. Tuberculosis screening: No symptoms or risk factors identified. Assessment: 16:50 General: Appears in no apparent distress. uncomfortable, Behavior is calm, cooperative, ld1 appropriate for age. Pain: Complains of pain in left lower quadrant Pain does not radiate. Pain currently is 8 out of 10 on a pain scale. Quality of pain is described as sharp, shooting, throbbing, Pain began 1 day ago. Is intermittent. Neuro: Level of Consciousness is awake, alert, obeys commands, Oriented to person, place, time, situation, Appropriate for age. 16:50 Cardiovascular: Capillary refill < 3 seconds Patient's skin is warm and dry. ld1 Respiratory: Airway is patent Respiratory effort is even, unlabored. GI: Abdomen is round non-distended, Reports nausea, vomiting. : No signs and/or symptoms were reported regarding the genitourinary system. EENT: No signs and/or symptoms were reported regarding the EENT system. Derm: No signs and/or symptoms reported regarding the dermatologic system. Musculoskeletal: No signs and/or symptoms reported regarding the musculoskeletal system. Vital Signs: 16:24 Weight 122.92 kg; Height 5 ft. 9 in. ; Pain 9/10; kb3 16:28 BP 144 / 97; Pulse 51; Resp 16; Temp 97.6; Pulse Ox 99% on R/A; bc6 18:00 BP 142 / 81; Pulse 58; Resp 16; Pulse Ox 99% ; ko1 16:24 Body Mass Index 40.02 (122.92 kg, 175.26 cm) kb3 16:24 Pain Scale: Adult kb3 ED Course: 15:34 Patient arrived in ED. ra3 15:36 Shana Teran FNP-C [facility]. kb 15:36 Thong Peña MD is Attending Physician. kb 16:26 Triage completed. kb3 16:26 Arm band placed on right wrist. kb3 16:29 Isa Cintron, SANDRA is Primary Nurse. ld1 16:47 Test, Urine Sent. ko1 16:47 Urinalysis w/ reflexes Sent. ko1 16:51 CT Stone Protocol In Process Unspecified. EDMS 17:15 Patient has correct armband on for positive identification. Bed in low position. Call ko1 light in reach. Side rails up X2. Provided Education on: meds, labs. Client placed on continuous cardiac and pulse oximetry monitoring. NIBP monitoring applied. threat monitoring analyst on. Door closed. Noise minimized. Lights dimmed. Warm blanket given. Pillow given. 17:15 Lipase Sent. ko1 17:15 CMP Sent. ko1 17:15 CBC with Diff Sent. ko1 17:15 No provider procedures requiring assistance completed. Initial lab(s) drawn, by ga, ko1 sent to lab. Urine collected: clean catch specimen, beth colored. Inserted saline lock: 20 gauge in left antecubital area, using aseptic technique. Blood collected. Flushed with 10 mL NS. 18:00 IV discontinued, intact, bleeding controlled, No redness/swelling at site. Pressure ko1 dressing applied. Administered Medications: 17:10 Drug: NS 0.9% IV 1000 ml IV at 1000 ml once Route: IV; Rate: 1000 ml; Site: left ko1 antecubital; 18:06 Follow up: Response: No adverse reaction; IV Status: Completed infusion; IV Intake: ld1 1000ml 17:12 Drug: Ondansetron IVP 4 mg IVP once; over 2 minutes Route: IVP; Site: left antecubital; ko1 18:05 Follow up: Response: No adverse reaction ld1 17:14 Drug: morphine IVP or IV 4 mg IVP once over 4 mins Route: IVP; Infused Over: 4 mins; ko1 Site: left antecubital; 18:06 Follow up: Response: No adverse reaction ld1 Medication: 17:15 VIS not applicable for this client. ko1 Intake: 18:06 IV: 1000ml; Total: 1000ml. ld1 Outcome: 17:53 Discharge ordered by . chasity 18:00 Discharged to home via wheelchair, ko1 18:00 Condition: stable 18:00 Discharge instructions given to patient, family, Instructed on discharge instructions, follow up and referral plans. medication usage, Demonstrated understanding of instructions, follow-up care, medications, 18:06 Discharged to home via wheelchair, with family, ld1 18:06 Condition: stable 18:06 Discharge instructions given to patient, Instructed on discharge instructions, follow up and referral plans. Demonstrated understanding of instructions, follow-up care, 18:06 Patient left the ED. ld1 Signatures: Dispatcher [employer] EDMS Shana Teran, CLOTHES SHAKER-C CLOTHES SHAKER-CkIsa Mello, RN RN ld1 Fabiana Sarkar, SANDRA RN kb3 Katie Woodson, SANDRA RN ko1 Ginger Jefferson6 Marcie Avila ra3
[2023-11-30 18:33] VITALS: TEMP 97.6; O2SAT 99
[2023-11-30 18:35] VITALS: BP 142/81
== END 2023-11-30 18:06 | disposition home or self-care (01) ==
LOC: ER 15:32
DX: R10.32 Left lower quadrant pain (principal); R19.7 Diarrhea, unspecified; F17.210 Nicotine dependence, cigarettes, uncomplicated
CPT/HCPCS: 36415; 74176; 76377; 80053; 81001; 81025; 83690; 85025; 96361; 96374; 96375; 99285; J2405; J7030